=== PATIENT | female | born 1935 | race Caucasian/White ===

== ENCOUNTER → 2016-10-29 | Outpatient (CLI) | payer MEDICARE, MEDICAID | LOC: YCHH 12:45 | PROVIDERS: ATTEND Family Medicine | DX: D64.9 Anemia, unspecified (principal); I10 Essential (primary) hypertension; E05.90 Thyrotoxicosis, unspecified without thyrotoxic crisis or storm; E78.5 Hyperlipidemia, unspecified ==

== ENCOUNTER → 2016-11-04 | Outpatient (CLI) | payer MEDICARE, MEDICAID | LOC: GMAM 14:45 | PROVIDERS: ATTEND Family Medicine | DX: E53.8 Deficiency of other specified B group vitamins (principal) ==

== ENCOUNTER → 2016-11-10 | Outpatient (CLI) | payer MEDICARE, MEDICAID ==
--- NOTE | 2016-11-10 17:35 | US ---
EXAM DESCRIPTION: Venous,Upper Extremity RT CLINICAL HISTORY: SWELLING OF ARM COMPARISON: None Available TECHNIQUE: Duplex images of the jugular, subclavian, axillary, brachial, cephalic, basilic, radial and ulnar veins of the right upper extremity were submitted. FINDINGS: All of the above-mentioned venous structures demonstrate normal flow without thrombus. IMPRESSION: No sonographic evidence of acute DVT within the right upper extremity. Electronically signed by: Joey Mendieta MD 11/10/2016 3:34 PM PST
== END ==
LOC: GMA 16:00
PROVIDERS: ATTEND Nurse Practitioner Family
DX: R22.31 Localized swelling, mass and lump, right upper limb (principal)

== ENCOUNTER → 2016-11-17 | Outpatient (CLI) | payer MEDICARE, MEDICAID | LOC: GMAM 17:57 | PROVIDERS: ATTEND Family Medicine | DX: Z77.21 Contact with and (suspected) exposure to potentially hazardous body fluids (principal) ==

== ENCOUNTER → 2017-01-01 | Outpatient (CLI) | payer MEDICARE, MEDICAID | END | disposition home or self-care (01) | LOC: YCHH 13:13 | PROVIDERS: ATTEND Family Medicine | DX: E53.8 Deficiency of other specified B group vitamins (principal) ==

== ENCOUNTER 2017-01-19 09:39 | Emergency (ER) | payer MEDICARE, MEDICAID ==
[2017-01-19 09:59] VITALS: TEMP 97.7
--- NOTE | 2017-01-19 10:01 | ED.PDOC ---
History of Present Illness - General Chief Complaint: Trauma Stated Complaint: fall Time Seen by Provider: 01/19/17 09:52 Source: patient Exam Limitations: no limitations - History of Present Illness Initial Comments: PT FELL 2 DAYS AGO. COMES FOR EVALUATION. C/O PAIN NECK, R LEG, R KNEE. NO LOC Severity: mild Improving Factors: nothing Worsening Factors: other - TAKES COUMADIN Allergies/Adverse Reactions: Allergies Ranolazine [From Ranexa] Allergy (Verified 01/19/17 09:57) Unknown Yellow Dye [From Ranexa] Allergy (Verified 01/19/17 09:57) Unknown Cilostazol Adverse Reaction (Verified 01/19/17 09:57) Other Makes her feel dizzy Home Medications: Ambulatory Orders Aspirin [Aspirin 81] 81 mg PO DAILY 10/08/13 Ferrous Sulfate [Iron] 65 mg PO DAILY 10/08/13 Lisinopril 20 mg PO DAILY 10/08/13 Nitroglycerin 0.4 mg Tab [Nitrostat] 1 ea SL .Q5M PRN 10/08/13 Simvastatin 80 mg PO BEDTIME 10/08/13 Albuterol Sulfate Nebs [Proventil Nebs] 2.5 mg INH RTTID 10/31/15 Levothyroxine Sodium [Synthroid] 100 mcg PO DAILY 10/31/15 Warfarin Sodium 4 mg PO BEDTIME 10/31/15 Ipratropium/Albuterol [Duoneb] 3 ml NEB TID 03/12/16 B-Complex Vitamins [Vitamin B Complex] 1 tab PO DAILY 01/19/17 Sennosides [Senna-Lax] 8.6 mg PO DAILY 01/19/17 Review of Systems - Review of Systems Constitutional: Denies: chills, fever, weakness EENTM: Denies: ear pain, throat pain Respiratory: Denies: cough, short of breath, wheezing Cardiology: Denies: chest pain, edema, palpitations Gastrointestinal/Abdominal: Denies: nausea, vomiting Genitourinary: Denies: dysuria, hematuria Musculoskeletal: States: back pain, neck pain Skin: States: other - BRUISING Neurological: Denies: numbness, paresthesia, weakness Endocrine: States: no symptoms reported Hematologic/Lymphatic: States: no symptoms reported Past Medical History (General) - Patient Medical History Hx Seizures: No Hx Stroke: No Hx Asthma: No Hx of COPD: Yes Hx Cardiac Disorders: Yes Hx Congestive Heart Failure: No Hx Pacemaker: No Hx Hypertension: Yes Hx Thyroid Disease: Yes Hx Diabetes: No Hx MRSA: No Hx Other - free text: PVD - Vaccination History Hx Tetanus, Diphtheria Vaccination: Yes Hx Influenza Vaccination: No Hx Pneumococcal Vaccination: No - Social History Hx Tobacco Use: Yes Hx Alcohol Use: No Hx Substance Use: No Hx Physical Abuse: No Hx Emotional Abuse: No - Female History Patient : No Family Medical History - Family History Mother Family History: Unknown Living Status: Hx Family Hypertension: Yes Hx Family Diabetes: Yes Physical Exam - Physical Exam General Appearance: Alert, Comfortable, No apparent distress Eye Exam: bilateral normal Ears, Nose, Throat: hearing grossly normal, normal ENT inspection Neck: full range of motion, supple, other - TENDER R PARACERVICAL REGION, NO MIDLINE TTP, NO DEFORMITY Respiratory: lungs clear, normal breath sounds, no respiratory distress, other - SMALL BRUISE TO R POST THORAX, TTP, NO CREPITUS, NO SUBQ EMPH. Cardiovascular/Chest: regular rate, rhythm, no murmur Gastrointestinal/Abdominal: non tender, soft, no organomegaly Back Exam: other - NO T/L SPINE TTP Extremity: normal range of motion, other - TTP RUL, NO BRUISING, NO DEFORMITY, NVI Neurologic: no motor/sensory deficits, alert, normal mood/affect Skin Exam: normal color, warm/dry, other - SMALL NON SUTURABLE LACERATION THENAR EMENINCE R HAND, MILD BRUISING BIRD AND LOWER ARM Lymphatic: no adenopathy Progress - Progress Progress: 01/19/17 11:28 HAVE REVIEWED ALL IMAGES AND AGREE WITH RADIOLOGY INTERP. PT FEELING WELL, DOES NOT NEED ANY MEDICATIONS AT HOME. Departure - Departure Clinical Impression: Cervical strain, acute Qualifiers: Encounter type: initial encounter Qualifier Code: (S16.1XXA) Strain of muscle, fascia and tendon at neck level, initial encounter Contusion of thoracic wall Qualifiers: Encounter type: initial encounter Contusion of thoracic wall detail: back wall of thorax Laterality: right Qualifier Code: (S20.221A) Contusion of right back wall of thorax, initial encounter Contusion of leg, right Qualifiers: Encounter type: initial encounter Qualifier Code: (S80.11XA) Contusion of right lower leg, initial encounter Condition: Good Departure Forms: ED Discharge - Pt. Copy, Patient Portal Self Enrollment Instructions: DI for Musculoskeletal Pain Home Medications: Ambulatory Orders Aspirin [Aspirin 81] 81 mg PO DAILY 10/08/13 Ferrous Sulfate [Iron] 65 mg PO DAILY 10/08/13 Lisinopril 20 mg PO DAILY 10/08/13 Nitroglycerin 0.4 mg Tab [Nitrostat] 1 ea SL .Q5M PRN 10/08/13 Simvastatin 80 mg PO BEDTIME 10/08/13 Albuterol Sulfate Nebs [Proventil Nebs] 2.5 mg INH RTTID 10/31/15 Levothyroxine Sodium [Synthroid] 100 mcg PO DAILY 10/31/15 Warfarin Sodium 4 mg PO BEDTIME 10/31/15 Ipratropium/Albuterol [Duoneb] 3 ml NEB TID 03/12/16 B-Complex Vitamins [Vitamin B Complex] 1 tab PO DAILY 01/19/17 Sennosides [Senna-Lax] 8.6 mg PO DAILY 01/19/17
--- NOTE | 2017-01-19 10:53 | RAD ---
Study: Single Frontal View of the Chest. Indication:FALL WITH PAIN Comparison: March 12, 2016. Impression: Median sternotomy wires. Cardiomegaly. Elevation right hemidiaphragm. Emphysema with scattered areas of scarring suspected. No new consolidation, pleural effusion, or pneumothorax. Osteopenia. If this is a new finding, DEXA scan recommended as well as evaluation for possible osteoporosis treatment. Electronically signed by: López Nichole MD 01/19/2017 10:52 AM CDT
--- NOTE | 2017-01-19 11:03 | RAD ---
EXAM DESCRIPTION: Femur,Right CLINICAL HISTORY: FALL WITH PAIN COMPARISON: None. IMPRESSION: 2 views of the right femur shows no convincing evidence of acute fracture, focal bone destruction, or joint dislocation. There is moderate narrowing of the medial tibiofemoral compartment and joint line osteophytes consistent with moderate to severe osteoarthritic-type changes. There is increased density in the suprapatellar bursa region suggesting joint effusion. If the patient has more localized pain in the distal femur or knee region, further evaluation with dedicated x-rays of the knee may be useful. Severe vascular calcifications are seen. Soft tissue surgical clips throughout the soft tissues are seen possibly related to previous vascular surgery. Mild osteoarthritic changes of the right hip are seen. Electronically signed by: Alejandro Poon MD 01/19/2017 11:02 AM CDT
--- NOTE | 2017-01-19 11:22 | CT ---
Study: CT cervical spine. Indication: FALL WITH PAIN Technique: Axial CT images were acquired through the cervical spine without intravenous contrast. Coronal and sagittal reformats performed. Comparison: None. Findings: Vertebral body height maintained. Straightening cervical spine. No acute fracture identified. Pronounced cervical disc disease noted with moderate severe disc space height loss at the C3-C4 through C6-C7 disc space levels. Changes are most pronounced at the C6-C7 disc space level where a disc osteophyte complex produces at least moderate spinal canal narrowing. Varying degrees of bilateral neural foraminal narrowing at each of these levels as well. Atherosclerosis great vessels. Impression: No CT evidence of acute cervical fracture. Cervical disc disease. MRI could better evaluate as clinically indicated. Atherosclerosis. Electronically signed by: López Nichole MD 01/19/2017 11:21 AM CDT
[2017-01-19 11:47] VITALS: BP 186/68; O2SAT 90
== END 2017-01-19 11:47 | disposition home or self-care (01) ==
LOC: ER 09:39
DX: S16.1XXA Strain of muscle, fascia and tendon at neck level, initial encounter (principal); S20.221A Contusion of right back wall of thorax, initial encounter; S80.11XA Contusion of right lower leg, initial encounter; J44.9 Chronic obstructive pulmonary disease, unspecified; I10 Essential (primary) hypertension; E07.9 Disorder of thyroid, unspecified; Z79.82 Long term (current) use of aspirin; Z79.01 Long term (current) use of anticoagulants; Z79.899 Other long term (current) drug therapy; Z88.8 Allergy status to other drugs, medicaments and biological substances; Z87.891 Personal history of nicotine dependence; W19.XXXA Unspecified fall, initial encounter; Y92.9 Unspecified place or not applicable

== ENCOUNTER → 2017-01-28 | Outpatient (CLI) | payer MEDICARE, MEDICAID | LOC: YCHH 10:36 | PROVIDERS: ATTEND Family Medicine | DX: D64.9 Anemia, unspecified (principal); E53.8 Deficiency of other specified B group vitamins; N18.9 Chronic kidney disease, unspecified; E78.5 Hyperlipidemia, unspecified; E03.9 Hypothyroidism, unspecified ==

== ENCOUNTER → 2017-04-22 | Outpatient (CLI) | payer MEDICARE, MEDICAID | END | disposition home or self-care (01) | LOC: YCHH 09:29 | PROVIDERS: ATTEND Family Medicine | DX: D64.9 Anemia, unspecified (principal); E53.8 Deficiency of other specified B group vitamins; I10 Essential (primary) hypertension; E78.5 Hyperlipidemia, unspecified; E03.9 Hypothyroidism, unspecified ==

== ENCOUNTER → 2017-08-03 | Outpatient (CLI) | payer MEDICARE, MEDICAID | END | disposition home or self-care (01) | LOC: YCHH 10:09 | PROVIDERS: ATTEND Family Medicine | DX: I25.119 Atherosclerotic heart disease of native coronary artery with unspecified angina pectoris (principal); D64.9 Anemia, unspecified; J44.9 Chronic obstructive pulmonary disease, unspecified; I70.201 Unspecified atherosclerosis of native arteries of extremities, right leg; I10 Essential (primary) hypertension ==

== ENCOUNTER → 2017-09-24 | Outpatient (CLI) | payer MEDICARE, MEDICAID ==
--- NOTE | 2017-09-25 03:59 | RAD ---
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 There is no acute fracture or dislocation. Surgical clips project over the medial thigh. Electronically signed by: Jonathon Rubio MD 09/25/2017 3:58 AM CEMENTER HELPER
--- NOTE | 2017-09-25 04:00 | RAD ---
Examination: XR PELVIS 1-2 VIEWS dated 09/24/2017 12:00 AM [employer] SAMPLING AND MONITORING History: HIP PAIN Comparison: None Technique: Frontal view of the pelvis FINDINGS AND IMPRESSION: Mild degenerative changes of both hips without acute fracture or dislocation. Vascular calcifications of the right medial thigh. Bilateral surgical clips. Intact pelvic ring. Symmetric SI joints. Electronically signed by: Jonathon Rubio MD 09/25/2017 3:59 AM [employer] SAMPLING AND MONITORING
== END ==
LOC: RAD 08:17
PROVIDERS: ATTEND Orthopaedic Surgery
DX: M25.552 Pain in left hip (principal)

== ENCOUNTER → 2017-10-27 | Outpatient (CLI) | payer MEDICARE, MEDICAID | END | disposition home or self-care (01) | LOC: YCHH 09:48 | PROVIDERS: ATTEND Family Medicine | DX: D64.9 Anemia, unspecified (principal); I25.119 Atherosclerotic heart disease of native coronary artery with unspecified angina pectoris; J44.9 Chronic obstructive pulmonary disease, unspecified; I73.9 Peripheral vascular disease, unspecified; E03.9 Hypothyroidism, unspecified ==

== ENCOUNTER → 2018-01-27 | Outpatient (CLI) | payer MEDICARE, MEDICAID | LOC: YCHH 10:28 | PROVIDERS: ATTEND Family Medicine | DX: E03.9 Hypothyroidism, unspecified (principal); I25.119 Atherosclerotic heart disease of native coronary artery with unspecified angina pectoris; D64.9 Anemia, unspecified; I73.9 Peripheral vascular disease, unspecified ==

== ENCOUNTER → 2018-03-17 | Outpatient (CLI) | payer MEDICARE, MEDICAID | LOC: YCHH 09:37 | PROVIDERS: ATTEND Family Medicine | DX: E03.9 Hypothyroidism, unspecified (principal); N39.0 Urinary tract infection, site not specified ==

== ENCOUNTER → 2018-04-26 | Outpatient (CLI) | payer MEDICARE, MEDICAID | LOC: YCHH 09:21 | PROVIDERS: ATTEND Family Medicine | DX: N18.9 Chronic kidney disease, unspecified (principal); E78.5 Hyperlipidemia, unspecified; D64.9 Anemia, unspecified; E03.9 Hypothyroidism, unspecified ==

== ENCOUNTER → 2018-06-21 | Outpatient (CLI) | payer MEDICARE, MEDICAID | LOC: GMAM 14:28 | PROVIDERS: ATTEND Family Medicine | DX: E53.8 Deficiency of other specified B group vitamins (principal); E03.9 Hypothyroidism, unspecified; E55.9 Vitamin D deficiency, unspecified; M85.89 Other specified disorders of bone density and structure, multiple sites ==

== ENCOUNTER → 2018-06-28 | Outpatient (CLI) | payer MEDICARE, MEDICAID ==
--- NOTE | 2018-06-28 11:42 | MRI ---
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 Large joint effusion with diffuse synovitis. Multifocal chondral fissuring throughout the patellofemoral joint up to grade 4 the medial patellar facet fairly diffuse otherwise grade 2-3 diffusely. Mild lateral patellar tilt with medial tracking. Postsurgical changes along the medial aspect of the knee likely from previous saphenous harvesting correlate with surgical history. Cruciate ligaments are intact. Extensor tendons are intact. Advanced grade 4 chondrosis throughout the medial tibiofemoral compartment with joint space narrowing subchondral edema and partial medial extrusion of the medial meniscus. There is diffuse degenerative change of the medial meniscus with small horizontal tear in the body and moderate volume loss. There is diffuse degenerative fraying of the lateral meniscus with horizontal tear of the anterior horn and body. There is vague chondrosis grade 2-3 in the lateral tibiofemoral compartment multifocal. Mild grade 1 edema along the MCL and LCL. Mild subchondral osteophyte formation lateral femoral condyle sagittal series 5 image 24. 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
== END ==
LOC: MRI 11:00
PROVIDERS: ATTEND Family Medicine
DX: M17.11 Unilateral primary osteoarthritis, right knee (principal); M23.303 Other meniscus derangements, unspecified medial meniscus, right knee; M25.461 Effusion, right knee

== ENCOUNTER 2018-06-30 11:36 | Emergency (ER) | payer MEDICARE, MEDICAID ==
[2018-06-30 11:55] VITALS: TEMP 97.9
--- NOTE | 2018-06-30 12:28 | RAD ---
EXAM DESCRIPTION: Chest,1 View CLINICAL HISTORY: 83 years Female, chest pain, history of PVD, on coumadin COMPARISON: Previous study January 19, 2017 TECHNIQUE: AP portable chest. FINDINGS: Heart size is prominent with prominent central pulmonary vascularity. Right hemidiaphragm is elevated. Minimal discoid atelectasis in the medial right lung base and peripheral left lung base. No consolidating infiltrate. No pulmonary mass or worrisome nodule. No pneumothorax or pleural effusion. Bones are unremarkable. No worrisome change since previous study. IMPRESSION: Elevated right hemidiaphragm. Prominent heart without congestive failure. Discoid atelectasis in the lung bases. Electronically signed by: Torsten Gross MD 06/30/2018 12:27 PM CDT
--- NOTE | 2018-06-30 12:30 | ED.PDOC ---
History of Present Illness - General Chief Complaint: General Stated Complaint: jaw pain,nausea Time Seen by Provider: 06/30/18 12:00 Source: patient Exam Limitations: no limitations - History of Present Illness Initial Comments: Patient presents from clinic after she had an "episode" in the waiting room there. She says that she felt bilateral LE cramping that moved up to her hips, then abdomen, then chest, then left jaw. She got up and walked around and the LE cramping disappeared. She was sent to the E.D. and right now she is not having any symptoms. 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 She is not sure if the stents are arterial, venous, or both. She takes coumadin for the stents. She also reports that she got "light-headed" during the "episode". Denies previous episodes No other complaints. Timing/Duration: 1 hour Severity: moderate Improving Factors: nothing Worsening Factors: nothing Associated Symptoms: denies symptoms Allergies/Adverse Reactions: Allergies Ranolazine [From Ranexa] Allergy (Verified 01/19/17 09:57) Unknown Yellow Dye [From Ranexa] Allergy (Verified 01/19/17 09:57) Unknown Cilostazol Adverse Reaction (Verified 01/19/17 09:57) Other Makes her feel dizzy Home Medications: Ambulatory Orders Aspirin [Aspirin 81] 81 mg PO DAILY 10/08/13 Lisinopril 20 mg PO DAILY 10/08/13 Nitroglycerin 0.4 mg Tab [Nitrostat] 1 ea SL .Q5M PRN 10/08/13 Simvastatin 80 mg PO BEDTIME 10/08/13 Albuterol Sulfate Nebs [Proventil Nebs] 2.5 mg INH BID 10/31/15 Warfarin Sodium 4 mg PO BEDTIME 10/31/15 Ipratropium/Albuterol [Duoneb] 3 ml NEB TID 03/12/16 Sennosides [Senna-Lax] 8.6 mg PO DAILY 01/19/17 Ascorbic Acid [Vitamin C] 500 mg PO DAILY 06/30/18 Calcium Carbonate-Vitamin D W/ [Gnp Calcium 600 +D/[place] 600-800 mg-Unit] 1 tab PO DAILY 06/30/18 Cyanocobalamin [Vitamin B-12] 1,000 mcg PO DAILY 06/30/18 Docusate Sodium [Colace Clear] 1 - 2 mg PO PRN 06/30/18 Ferrous Sulfate 325 mg PO BID 06/30/18 Levothyroxine Sodium 112 mcg PO DAILY 06/30/18 Multiple Vitamins W/ Minerals [Centrum Silver Adult 50+] 1 tab PO DAILY Potassium Chloride [Micro-K] 8 meq PO PRN 06/30/18 Sennosides 8.6MG [Senokot] 2 ea PO BEDTIME 06/30/18 Review of Systems - Review of Systems Constitutional: States: no symptoms reported EENTM: States: no symptoms reported Respiratory: States: no symptoms reported Cardiology: States: see HPI Gastrointestinal/Abdominal: States: no symptoms reported Genitourinary: States: no symptoms reported Musculoskeletal: States: no symptoms reported Skin: States: no symptoms reported Neurological: States: no symptoms reported Endocrine: States: no symptoms reported Hematologic/Lymphatic: States: no symptoms reported Past Medical History (General) - Patient Medical History Hx Seizures: No Hx Stroke: No Hx Asthma: No Hx of COPD: Yes Hx Cardiac Disorders: Yes Hx Congestive Heart Failure: No Hx Pacemaker: No Hx Hypertension: Yes Hx Thyroid Disease: Yes Hx Diabetes: No Hx MRSA: No Surgical History: coronary bypass surgery, Hysterectomy - Vaccination History Hx Tetanus, Diphtheria Vaccination: Yes Hx Influenza Vaccination: No Hx Pneumococcal Vaccination: No - Social History Hx Tobacco Use: Yes Hx Alcohol Use: No Hx Substance Use: No Hx Physical Abuse: No Hx Emotional Abuse: No - Female History Patient : No Family Medical History - Family History Mother Family History: Unknown Living Status: Hx Family Hypertension: Yes Hx Family Diabetes: Yes Physical Exam - Physical Exam General Appearance: Alert Eye Exam: bilateral normal Ears, Nose, Throat: hearing grossly normal, normal ENT inspection Neck: non-tender, full range of motion, supple Respiratory: lungs clear, normal breath sounds, no respiratory distress Cardiovascular/Chest: normal peripheral pulses, regular rate, rhythm, no edema Gastrointestinal/Abdominal: normal bowel sounds, non tender, soft Back Exam: normal inspection, no CVA tenderness, no vertebral tenderness Extremity: normal range of motion, non-tender, normal inspection Neurologic: customer success advocate II-XII nml as tested, no motor/sensory deficits, alert, normal mood/affect, oriented x 3 Skin Exam: normal color Lymphatic: no adenopathy Progress - Progress Progress: 06/30/18 15:41 Patient was symptomatic in the E.D. EKG read by me showed NSR with no ST changes nor T wave inversions. No LBBB. Laboratory Tests 06/30/18 06/30/18 06/30/18 12:27 12:27 12:27 WBC 4.6 L RBC 3.31 L Hgb 10.6 L Hct 32.3 L MCV 97.6 MCH 32.0 H MCHC 32.8 L RDW 14.9 H Plt Count 213 MPV 9.2 Absolute Neuts (auto) 2.70 Absolute Lymphs (auto) 1.20 Absolute Monos (auto) 0.50 Absolute Eos (auto) 0.10 Absolute Basos (auto) 0.10 Neutrophils % 59.5 Lymphocytes % 26.2 Monocytes % 11.3 H Eosinophils % 1.7 Basophils % 1.3 PT INR PTT (SP) D-Dimer, Quantitative Sodium 144 Potassium 4.2 Chloride 107 Carbon Dioxide 30 Anion Gap 11.2 L BUN 17 Creatinine 0.67 BUN/Creatinine Ratio 25.4 H Random Glucose 75 Serum Osmolality 287.1 Calcium 9.1 Total Bilirubin 0.2 AST 20 ALT 15 Alkaline Phosphatase 54 Creatine Kinase 76 CK-MB (CK-2) 1.6 CK-MB (CK-2) % Not Reportable Troponin I < 0.02 B-Natriuretic Peptide 121.0 H Serum Total Protein 6.5 Albumin 3.8 Globulin 2.7 Albumin/Globulin Ratio 1.4 TSH 1.17 Thyroxine (T4) Urine Color Urine Appearance Urine pH Ur Specific [place] Urine Protein Urine Glucose (UA) Urine Ketones Urine Blood Urine Nitrite Urine Bilirubin Urine Urobilinogen Ur Leukocyte Esterase Urine RBC Urine WBC Ur Epithelial Cells Urine Bacteria 06/30/18 06/30/18 06/30/18 12:27 12:27 12:27 WBC RBC Hgb Hct MCV MCH MCHC RDW Plt Count MPV Absolute Neuts (auto) Absolute Lymphs (auto) Absolute Monos (auto) Absolute Eos (auto) Absolute Basos (auto) Neutrophils % Lymphocytes % Monocytes % Eosinophils % Basophils % PT 23.0 H INR 2.32 H PTT (SP) 33.0 H D-Dimer, Quantitative 0.65 H* Sodium Potassium Chloride Carbon Dioxide Anion Gap BUN Creatinine BUN/Creatinine Ratio Random Glucose Serum Osmolality Calcium Total Bilirubin AST ALT Alkaline Phosphatase Creatine Kinase CK-MB (CK-2) CK-MB (CK-2) % Troponin I B-Natriuretic Peptide Serum Total Protein Albumin Globulin Albumin/Globulin Ratio TSH Thyroxine (T4) 11.41 Urine Color Urine Appearance Urine pH Ur Specific [place] Urine Protein Urine Glucose (UA) Urine Ketones Urine Blood Urine Nitrite Urine Bilirubin Urine Urobilinogen Ur Leukocyte Esterase Urine RBC Urine WBC Ur Epithelial Cells Urine Bacteria 06/30/18 06/30/18 14:15 15:01 WBC RBC Hgb Hct MCV MCH MCHC RDW Plt Count MPV Absolute Neuts (auto) Absolute Lymphs (auto) Absolute Monos (auto) Absolute Eos (auto) Absolute Basos (auto) Neutrophils % Lymphocytes % Monocytes % Eosinophils % Basophils % PT INR PTT (SP) D-Dimer, Quantitative Sodium Potassium Chloride Carbon Dioxide Anion Gap BUN Creatinine BUN/Creatinine Ratio Random Glucose Serum Osmolality Calcium Total Bilirubin AST ALT Alkaline Phosphatase Creatine Kinase CK-MB (CK-2) CK-MB (CK-2) % Troponin I < 0.02 B-Natriuretic Peptide Serum Total Protein Albumin Globulin Albumin/Globulin Ratio TSH Thyroxine (T4) Urine Color Yellow Urine Appearance Clear Urine pH 5.5 Ur Specific [place] 1.025 Urine Protein Negative Urine Glucose (UA) Negative Urine Ketones Negative Urine Blood Negative Urine Nitrite Negative Urine Bilirubin Negative Urine Urobilinogen 0.2 Ur Leukocyte Esterase Negative Urine RBC 0 Urine WBC 0 Ur Epithelial Cells 0 Urine Bacteria 0 Possible vasovagal given the patient's symptoms and rapid resolution. Care instructions given. E.R. warnings given. Questions were elicited and answered. The patient voiced understanding and agreement with the plan. Departure - Departure Clinical Impression: Light-headed feeling Disposition: Discharge to Home or Self Care Condition: Good Departure Forms: ED Discharge - Pt. Copy, Patient Portal Self Enrollment Diet: resume usual diet Activity: increase activity as tolerated Referrals: Sal Be MD [Primary Care Provider] - 1-2 Weeks Home Medications: Ambulatory Orders Aspirin [Aspirin 81] 81 mg PO DAILY 10/08/13 Lisinopril 20 mg PO DAILY 10/08/13 Nitroglycerin 0.4 mg Tab [Nitrostat] 1 ea SL .Q5M PRN 10/08/13 Simvastatin 80 mg PO BEDTIME 10/08/13 Albuterol Sulfate Nebs [Proventil Nebs] 2.5 mg INH BID 10/31/15 Warfarin Sodium 4 mg PO BEDTIME 10/31/15 Ipratropium/Albuterol [Duoneb] 3 ml NEB TID 03/12/16 Sennosides [Senna-Lax] 8.6 mg PO DAILY 01/19/17 Ascorbic Acid [Vitamin C] 500 mg PO DAILY 06/30/18 Calcium Carbonate-Vitamin D W/ [Gnp Calcium 600 +D/[place] 600-800 mg-Unit] 1 tab PO DAILY 06/30/18 Cyanocobalamin [Vitamin B-12] 1,000 mcg PO DAILY 06/30/18 Docusate Sodium [Colace Clear] 1 - 2 mg PO PRN 06/30/18 Ferrous Sulfate 325 mg PO BID 06/30/18 Levothyroxine Sodium 112 mcg PO DAILY 06/30/18 Multiple Vitamins W/ Minerals [Centrum Silver Adult 50+] 1 tab PO DAILY Potassium Chloride [Micro-K] 8 meq PO PRN 06/30/18 Sennosides 8.6MG [Senokot] 2 ea PO BEDTIME 06/30/18 Additional Instructions: See your regular doctor tomorrow to follow up with symptoms. Return to the E.R. immediately if you symptoms happen again.
[2018-06-30 16:11] VITALS: BP 171/66; O2SAT 93
== END 2018-06-30 16:10 | disposition home or self-care (01) ==
LOC: ER 11:36
DX: R42 Dizziness and giddiness (principal); I10 Essential (primary) hypertension; E07.9 Disorder of thyroid, unspecified; I73.9 Peripheral vascular disease, unspecified; J44.9 Chronic obstructive pulmonary disease, unspecified; Z95.1 Presence of aortocoronary bypass graft; Z79.899 Other long term (current) drug therapy; Z79.01 Long term (current) use of anticoagulants; Z79.82 Long term (current) use of aspirin; Z88.8 Allergy status to other drugs, medicaments and biological substances; Z87.891 Personal history of nicotine dependence

== ENCOUNTER → 2018-07-29 | Outpatient (CLI) | payer MEDICARE, MEDICAID | LOC: YCHH 09:47 | PROVIDERS: ATTEND Family Medicine | DX: D64.9 Anemia, unspecified (principal); I25.119 Atherosclerotic heart disease of native coronary artery with unspecified angina pectoris; E03.9 Hypothyroidism, unspecified; R79.89 Other specified abnormal findings of blood chemistry; Z79.01 Long term (current) use of anticoagulants ==

== ENCOUNTER → 2018-10-06 | Outpatient (CLI) | payer MEDICARE, MEDICAID | LOC: YCHH 10:14 | PROVIDERS: ATTEND Family Medicine | DX: N39.0 Urinary tract infection, site not specified (principal) ==

== ENCOUNTER → 2018-10-28 | Outpatient (CLI) | payer MEDICARE, MEDICAID | LOC: YCHH 10:16 | PROVIDERS: ATTEND Family Medicine | DX: I25.119 Atherosclerotic heart disease of native coronary artery with unspecified angina pectoris (principal); E03.9 Hypothyroidism, unspecified; D64.9 Anemia, unspecified; Z79.01 Long term (current) use of anticoagulants ==

== ENCOUNTER → 2018-11-10 | Outpatient (CLI) | payer MEDICARE, MEDICAID | LOC: YCHH 10:14 | PROVIDERS: ATTEND Family Medicine | DX: Z79.01 Long term (current) use of anticoagulants (principal) ==

== ENCOUNTER → 2018-11-24 | Outpatient (CLI) | payer MEDICARE, MEDICAID | LOC: YCHH 11:30 | PROVIDERS: ATTEND Family Medicine | DX: E03.9 Hypothyroidism, unspecified (principal); D64.9 Anemia, unspecified; I25.119 Atherosclerotic heart disease of native coronary artery with unspecified angina pectoris ==

== ENCOUNTER → 2019-01-11 | Outpatient (CLI) | payer MEDICARE, MEDICAID ==
--- NOTE | 2019-01-11 18:37 | MRI ---
MRI left wrist without contrast INDICATION: Wrist pain status post fall 3 weeks ago TECHNIQUE: Noncontrast MR imaging left wrist FINDINGS: No fracture or dislocation. Cystic or chondroid lesion in the mid to proximal scaphoid nonaggressive in appearance. Additional small cyst distal pole. Moderate osteoarthrosis basal joint of thumb. Mild osteoarthrosis STT compartment. There is edema throughout the thoracic of the hamate extending slightly into the body of the hamate indicating fracture. No gross displacement but CT may be considered. Intrasubstance degenerative change trying or fibrocartilage. Prominent fluid distal radioulnar joint. No evidence of carpal instability. 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
== END ==
LOC: MRI 10:00
PROVIDERS: ATTEND Family Medicine
DX: M71.332 Other bursal cyst, left wrist (principal); M19.042 Primary osteoarthritis, left hand; M89.9 Disorder of bone, unspecified; M25.432 Effusion, left wrist

== ENCOUNTER 2019-01-25 15:21 | Emergency (ER) | payer MEDICARE, MEDICAID ==
--- NOTE | 2019-01-25 16:03 | ED.PDOC ---
History of Present Illness - General Chief Complaint: Blood Pressure Problem Stated Complaint: dizzy, low BP Time Seen by Provider: 01/25/19 15:22 Source: patient Exam Limitations: no limitations - History of Present Illness Initial Comments: SHE WAS FEELING WEAK AND DIZZY. CALLED HOME HEALTH NURSE AND SHE NOTED THAT SHE HAD A BP OF 90 SYSTOLIC. THE PATIENT WAS SENT HERE FOR EVALUATION. Timing/Duration: 1 hour Improving Factors: nothing Worsening Factors: nothing Associated Symptoms: denies symptoms Allergies/Adverse Reactions: Allergies Ranolazine [From Ranexa] Allergy (Verified 01/25/19 16:18) Unknown Yellow Dye [From Ranexa] Allergy (Verified 01/25/19 16:18) Unknown Cilostazol Adverse Reaction (Verified 01/25/19 16:18) Other Makes her feel dizzy Home Medications: Ambulatory Orders Aspirin [Aspirin 81] 81 mg PO DAILY 10/08/13 Lisinopril 20 mg PO DAILY 10/08/13 Nitroglycerin 0.4 mg Tab [Nitrostat] 1 ea SL .Q5M PRN 10/08/13 Simvastatin 80 mg PO BEDTIME 10/08/13 Warfarin Sodium 4 mg PO BEDTIME 10/31/15 Ipratropium/Albuterol [Duoneb] 3 ml NEB TID 03/12/16 Levothyroxine Sodium 112 mcg PO DAILY 06/30/18 Potassium Chloride [Micro-K] 8 meq PO PRN 06/30/18 Sennosides 8.6MG [Senokot] 2 ea PO BEDTIME 06/30/18 Acetaminophen [Tylenol] 500 mg PO Q6H PRN 01/25/19 Furosemide [Lasix] 20 mg PO DAILY PRN 01/25/19 Iron W/ Vitamins [Geritol Complete] 1 tab PO DAILY 01/25/19 Review of Systems - Review of Systems Constitutional: States: malaise, weakness EENTM: States: no symptoms reported Respiratory: States: no symptoms reported Cardiology: States: no symptoms reported Gastrointestinal/Abdominal: States: no symptoms reported Genitourinary: States: no symptoms reported Musculoskeletal: States: no symptoms reported Skin: States: no symptoms reported Neurological: States: no symptoms reported Endocrine: States: no symptoms reported Hematologic/Lymphatic: States: no symptoms reported Past Medical History (General) - Patient Medical History Hx Seizures: No Hx Stroke: Yes Hx Asthma: No Hx of COPD: Yes Hx Cardiac Disorders: Yes Hx Congestive Heart Failure: Yes Hx Pacemaker: No Hx Hypertension: Yes Hx Thyroid Disease: Yes Hx Diabetes: No Hx MRSA: No Surgical History: coronary bypass surgery, Hysterectomy, other - Vaccination History Hx Tetanus, Diphtheria Vaccination: No Hx Influenza Vaccination: No Hx Pneumococcal Vaccination: No - Social History Hx Tobacco Use: Yes Hx Alcohol Use: No Hx Substance Use: No Hx Physical Abuse: No Hx Emotional Abuse: No - Female History Patient : No Family Medical History - Family History Mother Family History: Unknown Living Status: Hx Family Hypertension: Yes Hx Family Diabetes: Yes Father Hx Family Cancer: Yes - colon Physical Exam - Physical Exam General Appearance: Alert, No apparent distress, Well Developed, Well Hydrated Eye Exam: bilateral normal Ears, Nose, Throat: hearing grossly normal, normal ENT inspection, normal pharynx Neck: non-tender, full range of motion, supple Respiratory: chest non-tender, lungs clear, normal breath sounds, no respiratory distress Cardiovascular/Chest: normal peripheral pulses, regular rate, rhythm, no edema, no gallop, no murmur Peripheral Pulses: radial,right: 2+, radial,left: 2+ Gastrointestinal/Abdominal: normal bowel sounds, non tender, soft, no orga nomegaly Back Exam: normal inspection, no CVA tenderness, no vertebral tenderness Extremity: normal range of motion, non-tender, normal inspection Neurologic: normal mood/affect, oriented x 3 Skin Exam: normal color, warm/dry Lymphatic: no adenopathy Progress - Progress Progress: 01/25/19 17:36 01/25/19 15:45 EKG STAT 01/25/19 16:08 Vital Signs-Tilt PRN Laboratory Results WBC 7.6 K/mm3 (4.8-10.8) 01/25/19 15:58 RBC 3.78 M/mm3 (4.20-5.40) L 01/25/19 15:58 Hgb 11.5 gm/dL (12.0-16.0) L 01/25/19 15:58 Hct 35.1 % (36.0-47.0) L 01/25/19 15:58 MCV 92.8 fl (81.0-99.0) 01/25/19 15:58 MCH 30.3 pg (27.0-31.0) 01/25/19 15:58 MCHC 32.7 g/dL (33.0-37.0) L 01/25/19 15:58 RDW 12.5 % (11.5-14.5) 01/25/19 15:58 Plt Count 219 K/mm3 (130-400) 01/25/19 15:58 MPV 9.7 fl (7.40-10.4) 01/25/19 15:58 Absolute Neuts (auto) 5.00 K/uL (1.8-6.8) 01/25/19 15:58 Absolute Lymphs (auto) 1.60 K/uL (1.0-3.4) 01/25/19 15:58 Absolute Monos (auto) 0.90 K/uL (0.2-0.8) H 01/25/19 15:58 Absolute Eos (auto) 0.10 K/uL (0.0-0.4) 01/25/19 15:58 Absolute Basos (auto) 0.00 K/uL (0.0-0.1) 01/25/19 15:58 Neutrophils % 65.1 % (42.0-78.0) 01/25/19 15:58 Lymphocytes % 20.9 % (20.0-50.0) 01/25/19 15:58 Monocytes % 11.8 % (2.0-9.0) H 01/25/19 15:58 Eosinophils % 1.7 % (1.0-5.0) 01/25/19 15:58 Basophils % 0.5 % (0.0-2.0) 01/25/19 15:58 Sodium 138 mmol/L (135-145) 01/25/19 15:58 Potassium 4.5 mmol/L (3.6-5.0) 01/25/19 15:58 Chloride 104 mmol/L (101-111) 01/25/19 15:58 Carbon Dioxide 26 mmol/L (21-31) 01/25/19 15:58 Anion Gap 12.5 (12-18) 01/25/19 15:58 BUN 23 mg/dL (7-18) H 01/25/19 15:58 Creatinine 0.94 mg/dL (0.6-1.3) 01/25/19 15:58 BUN/Creatinine Ratio 24.5 (10-20) H 01/25/19 15:58 Random Glucose 65 mg/dL (70-105) L 01/25/19 15:58 Serum Osmolality 277.5 mOsm/L (275-295) 01/25/19 15:58 Calcium 9.2 mg/dL (8.4-10.2) 01/25/19 15:58 Total Bilirubin 0.3 mg/dL (0.2-1.0) 01/25/19 15:58 AST 22 IU/L (10-42) 01/25/19 15:58 ALT 16 IU/L (10-60) 01/25/19 15:58 Alkaline Phosphatase 64 IU/L (42-121) 01/25/19 15:58 Serum Total Protein 6.7 gm/dL (6.4-8.2) 01/25/19 15:58 Albumin 3.7 g/dl (3.2-5.5) 01/25/19 15:58 Globulin 3.0 gm/dL (2.3-3.5) 01/25/19 15:58 Albumin/Globulin Ratio 1.2 (1.1-1.9) 01/25/19 15:58 Urine Color Yellow (Yellow) 01/25/19 16:40 Urine Appearance Clear (Clear) 01/25/19 16:40 Urine pH 6.0 (4.5-7.8) 01/25/19 16:40 Ur Specific Ferguson 1.010 (1.005-1.030) 01/25/19 16:40 Urine Protein 30 mg/dL 01/25/19 16:40 Urine Glucose (UA) Negative mg/dL (Negative) 01/25/19 16:40 Urine Ketones Negative mg/dL (NEGATIVE) 01/25/19 16:40 Urine Blood Negative (Negative) 01/25/19 16:40 Urine Nitrite Negative 01/25/19 16:40 Urine Bilirubin Negative (NEGATIVE) 01/25/19 16:40 Urine Urobilinogen 0.2 mg/dL (0.2-1.0) 01/25/19 16:40 Ur Leukocyte Esterase Trace (Negative) H 01/25/19 16:40 Urine RBC 0-1 /hpf 01/25/19 16:40 Urine WBC 1-3 /hpf 01/25/19 16:40 Ur Epithelial Cells 5-10 /hpf 01/25/19 16:40 Urine Bacteria 1+ 01/25/19 16:40 - Results/Orders Results/Orders: 01/25/19 15:45 EKG STAT 01/25/19 16:08 Vital Signs-Tilt PRN 01/25/19 16:42 URINALYSIS Stat Laboratory Results WBC 7.6 K/mm3 (4.8-10.8) 01/25/19 15:58 RBC 3.78 M/mm3 (4.20-5.40) L 01/25/19 15:58 Hgb 11.5 gm/dL (12.0-16.0) L 01/25/19 15:58 Hct 35.1 % (36.0-47.0) L 01/25/19 15:58 MCV 92.8 fl (81.0-99.0) 01/25/19 15:58 MCH 30.3 pg (27.0-31.0) 01/25/19 15:58 MCHC 32.7 g/dL (33.0-37.0) L 01/25/19 15:58 RDW 12.5 % (11.5-14.5) 01/25/19 15:58 Plt Count 219 K/mm3 (130-400) 01/25/19 15:58 MPV 9.7 fl (7.40-10.4) 01/25/19 15:58 Absolute Neuts (auto) 5.00 K/uL (1.8-6.8) 01/25/19 15:58 Absolute Lymphs (auto) 1.60 K/uL (1.0-3.4) 01/25/19 15:58 Absolute Monos (auto) 0.90 K/uL (0.2-0.8) H 01/25/19 15:58 Absolute Eos (auto) 0.10 K/uL (0.0-0.4) 01/25/19 15:58 Absolute Basos (auto) 0.00 K/uL (0.0-0.1) 01/25/19 15:58 Neutrophils % 65.1 % (42.0-78.0) 01/25/19 15:58 Lymphocytes % 20.9 % (20.0-50.0) 01/25/19 15:58 Monocytes % 11.8 % (2.0-9.0) H 01/25/19 15:58 Eosinophils % 1.7 % (1.0-5.0) 01/25/19 15:58 Basophils % 0.5 % (0.0-2.0) 01/25/19 15:58 Sodium 138 mmol/L (135-145) 01/25/19 15:58 Potassium 4.5 mmol/L (3.6-5.0) 01/25/19 15:58 Chloride 104 mmol/L (101-111) 01/25/19 15:58 Carbon Dioxide 26 mmol/L (21-31) 01/25/19 15:58 Anion Gap 12.5 (12-18) 01/25/19 15:58 BUN 23 mg/dL (7-18) H 01/25/19 15:58 Creatinine 0.94 mg/dL (0.6-1.3) 01/25/19 15:58 BUN/Creatinine Ratio 24.5 (10-20) H 01/25/19 15:58 Random Glucose 65 mg/dL (70-105) L 01/25/19 15:58 Serum Osmolality 277.5 mOsm/L (275-295) 01/25/19 15:58 Calcium 9.2 mg/dL (8.4-10.2) 01/25/19 15:58 Total Bilirubin 0.3 mg/dL (0.2-1.0) 01/25/19 15:58 AST 22 IU/L (10-42) 01/25/19 15:58 ALT 16 IU/L (10-60) 01/25/19 15:58 Alkaline Phosphatase 64 IU/L (42-121) 01/25/19 15:58 Serum Total Protein 6.7 gm/dL (6.4-8.2) 01/25/19 15:58 Albumin 3.7 g/dl (3.2-5.5) 01/25/19 15:58 Globulin 3.0 gm/dL (2.3-3.5) 01/25/19 15:58 Albumin/Globulin Ratio 1.2 (1.1-1.9) 01/25/19 15:58 EKG: HR OF 71, FL INTERVAL OF 178, QRS OF 74, QTC OF 430, AXES OF 42 DEGREES. IMPRESSION: NORMAL SINUS RHYTHM, EVIDENCE OF ANTERIO NE- AGE UNDETERMINED. NO ACUTE INJURY PATTERN. no hypotension was recorder here. THE PATIENT WILL BE DISCHARGED Departure - Departure Clinical Impression: Dizziness Time of Disposition: 17:37 Disposition: Discharge to Home or Self Care Condition: Good Departure Forms: ED Discharge - Pt. Copy, Patient Portal Self Enrollment Instructions: DI for Hypotension Referrals: Sal Be MD [Primary Care Provider] - 1-2 Weeks Home Medications: Ambulatory Orders Aspirin [Aspirin 81] 81 mg PO DAILY 10/08/13 Lisinopril 20 mg PO DAILY 10/08/13 Nitroglycerin 0.4 mg Tab [Nitrostat] 1 ea SL .Q5M PRN 10/08/13 Simvastatin 80 mg PO BEDTIME 10/08/13 Warfarin Sodium 4 mg PO BEDTIME 10/31/15 Ipratropium/Albuterol [Duoneb] 3 ml NEB TID 03/12/16 Levothyroxine Sodium 112 mcg PO DAILY 06/30/18 Potassium Chloride [Micro-K] 8 meq PO PRN 06/30/18 Sennosides 8.6MG [Senokot] 2 ea PO BEDTIME 06/30/18 Acetaminophen [Tylenol] 500 mg PO Q6H PRN 01/25/19 Furosemide [Lasix] 20 mg PO DAILY PRN 01/25/19 Iron W/ Vitamins [Geritol Complete] 1 tab PO DAILY 01/25/19
[2019-01-25 17:55] VITALS: BP 148/67; TEMP 96.2; O2SAT 99
== END 2019-01-25 17:55 | disposition home or self-care (01) ==
LOC: ER 15:21
DX: R42 Dizziness and giddiness (principal); J44.9 Chronic obstructive pulmonary disease, unspecified; I50.9 Heart failure, unspecified; I10 Essential (primary) hypertension; E07.9 Disorder of thyroid, unspecified; Z95.1 Presence of aortocoronary bypass graft; Z86.73 Personal history of transient ischemic attack (TIA), and cerebral infarction without residual deficits; Z87.891 Personal history of nicotine dependence; Z79.899 Other long term (current) drug therapy; Z79.01 Long term (current) use of anticoagulants; Z79.82 Long term (current) use of aspirin; Z88.8 Allergy status to other drugs, medicaments and biological substances

== ENCOUNTER → 2019-02-24 | Outpatient (CLI) | payer MEDICARE, MEDICAID | LOC: YCHH 09:37 | PROVIDERS: ATTEND Family Medicine | DX: D64.9 Anemia, unspecified (principal); N18.9 Chronic kidney disease, unspecified; E78.5 Hyperlipidemia, unspecified; E03.9 Hypothyroidism, unspecified; I48.0 Paroxysmal atrial fibrillation ==

== ENCOUNTER 2019-04-17 16:52 | Emergency (ER) | payer MEDICARE, MEDICAID ==
--- NOTE | 2019-04-17 17:37 | ED.PDOC ---
History of Present Illness - General Chief Complaint: Cardiovascular Problem Stated Complaint: low blood pressure Time Seen by Provider: 04/17/19 17:34 Source: patient Exam Limitations: no limitations Additional Information: 83 YEAR PRESENTS WITH COMPLAINTS OF DIZZINESS WEAKNESS SHE CHECKED HER BP IT WAS RECORDED LOW IN THE 80S SHE IS ON LISINOPRIL 20 MG LASIX 40 MG PRN SHE DENIES NAUSEA VOMITING DIARRHEA HAS BEEN NOTICING BLACK STOOLS LAST ONE WEEK SHE WAS CHANGED TO XARALTO FROM COUMADIN BY HER PHYSICIAN IN [place] SHE HAS NO CHEST PAIN OR DIFFICULTY BREATHING PMH CABAG PAD HYPERTENSION CHF PHYSICAL AWAKE ALERT ORIENTED X 3 LUNGS BREATH SOUNDS NORMAL HEART SOUNDS NORMAL S1 S2 NO MURMUR EKG NSR NORMAL AXIS NON PROGRESSION OF R WAVE IN ANTEROSEPTAL LEADS NO ACUTE ST T CHANGES NOTED ABD SOFT NON TENDER NORMAL BOWEL SOUNDS RECTAL EXAM DARK STOOL NOTED POSITIVE FOR OCCULT BLOOD EXTREMITY MINIMAL EDEMA NOTED FEELS WARM AND NORMAL CAP REFILL COURSE IN ED NO HYPOTENSION NOTED DURING HER STAY TILT WAS NEGATIVE HYPOTENSION AT HOME IS MOST LIKELY COMBINATION OF BLOOD LOSS AND ANTIHYPERTENSIVE MEDICATION NEEDS GI EVALUATION FOR THE GI BLOOD LOSS IN THE SETTING OF ANTICOAGULANT XARALTO - History of Present Illness Timing/Duration: 1-3 hours Severity: mild Worsening Factors: nothing Associated Symptoms: denies symptoms Allergies/Adverse Reactions: Allergies Ranolazine [From Ranexa] Allergy (Verified 01/25/19 16:18) Unknown Yellow Dye [From Ranexa] Allergy (Verified 01/25/19 16:18) Unknown Cilostazol Adverse Reaction (Verified 01/25/19 16:18) Other Makes her feel dizzy Home Medications: Ambulatory Orders Aspirin [Aspirin 81] 81 mg PO DAILY 10/08/13 Lisinopril 10 mg PO DAILY 10/08/13 Nitroglycerin 0.4 mg Tab [Nitrostat] 1 ea SL .Q5M PRN 10/08/13 Simvastatin 80 mg PO BEDTIME 10/08/13 Ipratropium/Albuterol [Duoneb] 3 ml NEB TID 03/12/16 Levothyroxine Sodium 112 mcg PO DAILY 06/30/18 Potassium Chloride [Micro-K] 8 meq PO PRN 06/30/18 Sennosides 8.6MG [Senokot] 2 ea PO BEDTIME 06/30/18 Acetaminophen [Tylenol] 500 mg PO Q6H PRN 01/25/19 Furosemide [Lasix] 20 mg PO DAILY PRN 01/25/19 Iron W/ Vitamins [Geritol Complete] 1 tab PO DAILY 01/25/19 Methocarbamol 500 mg PO Q6HR PRN 04/17/19 Rivaroxaban [Xarelto] 2.5 mg PO BID 04/17/19 Review of Systems - Review of Systems Constitutional: States: no symptoms reported EENTM: States: no symptoms reported Respiratory: States: no symptoms reported Cardiology: States: no symptoms reported Gastrointestinal/Abdominal: States: no symptoms reported Genitourinary: States: no symptoms reported Musculoskeletal: States: no symptoms reported Skin: States: no symptoms reported Neurological: States: no symptoms reported Endocrine: States: no symptoms reported Hematologic/Lymphatic: States: no symptoms reported Past Medical History (General) - Patient Medical History Hx Seizures: No Hx Stroke: Yes Hx Asthma: No Hx of COPD: Yes Hx Cardiac Disorders: Yes Hx Congestive Heart Failure: Yes Hx Pacemaker: No Hx Hypertension: Yes Hx Thyroid Disease: Yes Hx Diabetes: No Hx MRSA: No - Vaccination History Hx Tetanus, Diphtheria Vaccination: No Hx Influenza Vaccination: No Hx Pneumococcal Vaccination: No - Social History Hx Tobacco Use: Yes Hx Alcohol Use: No Hx Substance Use: No Hx Physical Abuse: No Hx Emotional Abuse: No - Female History Patient : No Family Medical History - Family History Mother Family History: Unknown Living Status: Hx Family Hypertension: Yes Hx Family Diabetes: Yes Father Hx Family Cancer: Yes - colon Physical Exam - Physical Exam General Appearance: Alert, Comfortable Eye Exam: bilateral normal Ears, Nose, Throat: hearing grossly normal, normal ENT inspection, normal pharynx Neck: non-tender, full range of motion, supple Respiratory: chest non-tender, lungs clear, normal breath sounds, no respiratory distress, no accessory muscle use Cardiovascular/Chest: normal peripheral pulses, regular rate, rhythm, no edema, no gallop, no JVD, no murmur Gastrointestinal/Abdominal: normal bowel sounds, non tender, soft, no organomegaly Back Exam: normal inspection, no CVA tenderness, no vertebral tenderness Extremity: normal range of motion, non-tender, normal inspection Neurologic: customer response representative II-XII nml as tested, no motor/sensory deficits, alert, normal mood/affect, oriented x 3 Skin Exam: warm/dry Lymphatic: no adenopathy Progress - Results/Orders Results/Orders: Laboratory Tests 04/17/19 04/17/19 04/17/19 17:30 17:30 17:30 WBC 6.5 RBC 2.79 L Hgb 7.3 L* Hct 23.0 L MCV 82.3 MCH 26.1 L MCHC 31.7 L RDW 16.1 H Plt Count 240 MPV 9.0 Absolute Neuts (auto) 4.10 Absolute Lymphs (auto) 1.70 Absolute Monos (auto) 0.50 Absolute Eos (auto) 0.10 Absolute Basos (auto) 0.10 Neutrophils % 62.9 Lymphocytes % 27.0 Monocytes % 8.0 Eosinophils % 1.3 Basophils % 0.8 Sodium 136 Potassium 4.2 Chloride 104 Carbon Dioxide 25 Anion Gap 11.2 L BUN 24 H Creatinine 1.03 BUN/Creatinine Ratio 23.3 H Random Glucose 94 Serum Osmolality 275.8 Calcium 8.8 Total Bilirubin 0.5 AST 21 ALT 15 Alkaline Phosphatase 49 Troponin I < 0.02 Serum Total Protein 6.3 L Albumin 3.6 Globulin 2.7 Albumin/Globulin Ratio 1.3 Stool Occult Blood 04/17/19 19:30 WBC RBC Hgb Hct MCV MCH MCHC RDW Plt Count MPV Absolute Neuts (auto) Absolute Lymphs (auto) Absolute Monos (auto) Absolute Eos (auto) Absolute Basos (auto) Neutrophils % Lymphocytes % Monocytes % Eosinophils % Basophils % Sodium Potassium Chloride Carbon Dioxide Anion Gap BUN Creatinine BUN/Creatinine Ratio Random Glucose Serum Osmolality Calcium Total Bilirubin AST ALT Alkaline Phosphatase Troponin I Serum Total Protein Albumin Globulin Albumin/Globulin Ratio Stool Occult Blood Positive Departure - Departure Clinical Impression: GI bleeding, Anemia, Hx of CABG Time of Disposition: 20:27 Disposition: Transfer to Hospital Condition: Fair Departure Forms: ED Discharge - Pt. Copy, Patient Portal Self Enrollment Instructions: DI for Chest Pain Diet: full liquid diet Referrals: Sal Be MD [Primary Care Provider] - 1-2 Weeks Home Medications: Ambulatory Orders Aspirin [Aspirin 81] 81 mg PO DAILY 10/08/13 Lisinopril 10 mg PO DAILY 10/08/13 Nitroglycerin 0.4 mg Tab [Nitrostat] 1 ea SL .Q5M PRN 10/08/13 Simvastatin 80 mg PO BEDTIME 10/08/13 Ipratropium/Albuterol [Duoneb] 3 ml NEB TID 03/12/16 Levothyroxine Sodium 112 mcg PO DAILY 06/30/18 Potassium Chloride [Micro-K] 8 meq PO PRN 06/30/18 Sennosides 8.6MG [Senokot] 2 ea PO BEDTIME 06/30/18 Acetaminophen [Tylenol] 500 mg PO Q6H PRN 01/25/19 Furosemide [Lasix] 20 mg PO DAILY PRN 01/25/19 Iron W/ Vitamins [Geritol Complete] 1 tab PO DAILY 01/25/19 Methocarbamol 500 mg PO Q6HR PRN 04/17/19 Rivaroxaban [Xarelto] 2.5 mg PO BID 04/17/19
[2019-04-17 20:16] VITALS: TEMP 98
[2019-04-17 21:25] VITALS: O2SAT 98
[2019-04-17 21:53] VITALS: BP 151/54
== END 2019-04-17 21:43 | disposition short-term general hospital (02) ==
LOC: ER 16:52
DX: D64.9 Anemia, unspecified (principal); K92.1 Melena; J44.9 Chronic obstructive pulmonary disease, unspecified; I51.9 Heart disease, unspecified; I50.9 Heart failure, unspecified; I11.0 Hypertensive heart disease with heart failure; E07.9 Disorder of thyroid, unspecified; Z79.01 Long term (current) use of anticoagulants; Z95.1 Presence of aortocoronary bypass graft; Z79.82 Long term (current) use of aspirin; Z79.899 Other long term (current) drug therapy; Z88.8 Allergy status to other drugs, medicaments and biological substances; Z87.891 Personal history of nicotine dependence

== ENCOUNTER 2019-05-11 00:57 | Emergency (ER) | payer MEDICARE, MEDICAID ==
[2019-05-11 01:10] VITALS: TEMP 97.9
[2019-05-11 03:50] VITALS: BP 148/57; O2SAT 99
== END 2019-05-11 03:12 | disposition home or self-care (01) ==
LOC: ER 00:57
DX: R25.2 Cramp and spasm (principal); I25.10 Atherosclerotic heart disease of native coronary artery without angina pectoris; Z95.1 Presence of aortocoronary bypass graft; Z86.2 Personal history of diseases of the blood and blood-forming organs and certain disorders involving the immune mechanism

== ENCOUNTER → 2019-05-25 | Outpatient (CLI) | payer MEDICARE, MEDICAID | LOC: YCHH 11:58 | PROVIDERS: ATTEND Family Medicine | DX: D50.8 Other iron deficiency anemias (principal); D64.9 Anemia, unspecified; K92.1 Melena ==

== ENCOUNTER → 2019-06-08 | Outpatient (CLI) | payer MEDICARE, MEDICAID | LOC: GMAM 16:48 | PROVIDERS: ATTEND Family Medicine | DX: D50.0 Iron deficiency anemia secondary to blood loss (chronic) (principal); E03.9 Hypothyroidism, unspecified ==

== ENCOUNTER → 2019-06-12 | Outpatient (CLI) | payer MEDICARE, MEDICAID ==
--- NOTE | 2019-06-12 14:33 | MRI ---
EXAM DESCRIPTION: Brain w/wo Contrast: Magnetic Resonance Imaging. CLINICAL HISTORY: 84 years Female OTHER SPEECH AND LANGUAGE DEFICITS FOLLOWING CEREBROVASCULAR DIS COMPARISON: None. TECHNIQUE: Multiplanar, high-field MRI, multiple conventional sequences, without and with gadolinium IV contrast. No adverse reactions. Multiple axial diffusion sequences. FINDINGS: Small foci of hyperintense FLAIR and T2-weighted signal in the periventricular white matter abutting the occipital horn of the left lateral ventricle.. Bilateral subcortical white matter foci in the frontal lobes. These lesions are not associated with hemorrhage, cerebral edema, mass effect, diffusion restriction, or abnormal contrast enhancement. Normal signal in the bilateral basal ganglia. No hemorrhage, no cerebral edema, no mass-effect. Normal contrast enhancement and diffusion. Normal signal in the brainstem and cerebellar hemispheres. No hemorrhage, no cerebral edema, no mass-effect. Normal contrast enhancement and diffusion. Linear enhancement in the inferior medial right temporal lobe consistent with a vascular structure but not associated with mass effect, diffusion restriction or cerebral edema or hemorrhage. At the level of the right trigeminal ganglion. Concordance of the diffusion and non-diffusion sequences with no evidence of acute or subacute infarction. Cortical sulci, ventricles, and other CSF spaces, and the subdural spaces are normally configured for the patient's age.. No effacement or displacement. No midline shift. No extra-axial hemorrhage. Normal contrast enhancement. Normal flow signal void in the major vessels of the [place], and the venous sinuses. IACs are symmetric bilaterally. Normal signal in the bilateral mastoid air cells. No mass effect in the bilateral Cerebellopontine angles. Normal contrast enhancement. Pituitary gland occupies most sella. Normal contrast enhancement. Base of the cerebellar tonsils is at the level of the foramen magnum. Normal signal in the paranasal sinuses. The bony calvarium is intact. IMPRESSION: 1. White matter changes most likely related to aging and/or cerebral microvascular disease, with no hemorrhage, no mass effect, no cerebral edema, or diffusion restriction. Normal contrast enhancement. 2. Prominent vessel in the medial right temporal lobe, not associated with hemorrhage, mass effect, flow signal void, or diffusion restriction. At the level of the right trigeminal ganglion This may be related to an unseen venous malformation. If there are clinical findings associated with the right temporal lobe, consider follow-up CTA with reconstructions of the head. Electronically signed by: Ryley Arroyo MD 06/12/2019 2:32 PM CDT
== END ==
LOC: MRI 09:00
PROVIDERS: ATTEND Family Medicine
DX: I69.928 Other speech and language deficits following unspecified cerebrovascular disease (principal)

== ENCOUNTER → 2019-06-23 | Outpatient (CLI) | payer MEDICARE, MEDICAID ==
--- NOTE | 2019-06-23 15:20 | CT ---
EXAM DESCRIPTION: CTA Head CLINICAL HISTORY: OCCLUSION AND STENOSIS OF BILATERAL CAROTID ARTERIES COMPARISON: MRI head June 12, 2019 TECHNIQUE: Postcontrast CTA images of the head are obtained from base to vertex with coronal and sagittal reconstructed images. RIO MIP reconstructed images of the arterial vasculature are performed. This exam was performed according to our departmental dose-optimization program, which includes automated exposure control, adjustment of the mA and/or kV according to patient size and/or use of iterative reconstruction technique . FINDINGS: The midline structures are not displaced. Sulci are age-appropriate. No evidence of mass, mass effect, hydrocephalus, or acute cranial hemorrhage. No abnormal enhancement. No abnormal extra-axial fluid collections. The lateral, third, fourth ventricles are normal in size, shape, and anatomic positioning. Mild calcifications of the cavernous and clinoid portions of the internal carotid arteries are seen without high-grade or flow limiting stenosis. Normal branching of the major central intracranial arterial vasculature is seen with no evidence of aneurysm, vascular malformation, or flow limiting stricture or stenosis. No abnormal vessel seen in the right temporal region. Mild decreased attenuation in the periventricular white matter and white matter and centrum semiovale. 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 No aneurysm or vascular malformation is seen in the intracranial structures. Age-appropriate atrophy with mild old small vessel ischemic type changes are seen. Electronically signed by: Alejandro Poon MD 06/23/2019 3:18 PM CDT
--- NOTE | 2019-06-23 15:33 | CT ---
EXAM DESCRIPTION: CTA Neck CLINICAL HISTORY: OCCLUSION AND STENOSIS OF BILATERAL CAROTID ARTERIES COMPARISON: None. TECHNIQUE: Postcontrast CTA images of the neck are obtained with coronal and sagittal reconstructed images. Three-D reconstructed images of the arterial vascular performed. This exam was performed according to our departmental dose-optimization program, which includes automated exposure control, adjustment of the mA and/or kV according to patient size and/or use of iterative reconstruction technique . FINDINGS: Moderate calcified plaque of the thoracic aortic arch. Moderate calcified plaque of the origin of the great vessels without flow-limiting stenosis. Moderate calcified plaque of the left subclavian artery results in 50% stenosis by NASCET criteria proximal to the vertebral artery. Tortuosity of both subclavian arteries is seen. Tortuosity and scattered focal calcified plaque of the right common carotid artery. Moderate irregular calcified plaque of the right carotid bulb to proximal right internal carotid artery results in 30-40% stenosis of the right ICA by NASCET criteria. Tortuosity of the right upper cervical ICA without flow-limiting stenosis. Moderate scattered focal calcified plaque of the left common carotid artery without vessel narrowing. Mild calcified plaque of the left carotid bulb to proximal internal and external carotid artery with mild focal calcified plaque of the proximal left ICA. Less than 25% stenosis by NASCET criteria. Mild scattered calcified plaque of the codominant vertebral arteries without high-grade stenosis or occlusion. The neck soft tissues show no acute findings. No pathologic lymphadenopathy. The thyroid is not identified. Moderate centrilobular emphysematous changes to the lung apices are seen. Moderate to severe disc disease of the cervical spine from C3 through C7 resulting in at least mild spinal canal stenosis and multilevel mild foraminal encroachment. Mild facet arthropathy. IMPRESSION: [id number] calcific atherosclerotic disease of the great vessels and carotid arteries. 50% stenosis by NASCET criteria of the left subclavian artery proximal to the vertebral artery. Approximately 30-40% stenosis of the right proximal ICA by NASCET criteria. Electronically signed by: Alejandro Poon MD 06/23/2019 3:31 PM CDT
== END ==
LOC: CT 10:00
PROVIDERS: ATTEND Family Medicine
DX: I65.23 Occlusion and stenosis of bilateral carotid arteries (principal); R94.02 Abnormal brain scan

== ENCOUNTER 2019-07-09 16:41 | Emergency (ER) | payer MEDICARE, MEDICAID ==
--- NOTE | 2019-07-09 16:55 | ED.PDOC ---
History of Present Illness - General Chief Complaint: Trauma Stated Complaint: s/p fall Time Seen by Provider: 07/09/19 16:42 - History of Present Illness Initial Comments: Pt is an 84 yo female that presents with family for left arm and right knee injuries. States she waxed her floors last night and at 2300 last night she slipped on the slippery floor and landed on left arm and injured right knee. Has skin tear to left elbow and pain to dorsal left wrist. Also reports diffuse pain to right knee. Has been ambulatory today without difficulty. Has taken Tylenol this morning with some relief. Denies hitting head, LOC, neck or back pain, dizziness, vision changes or nausea. States she does not take blood thinners. Last Tetanus was 9 months ago. Allergies/Adverse Reactions: Allergies Ranolazine [From Ranexa] Allergy (Verified 01/25/19 16:18) Unknown Yellow Dye [From Ranexa] Allergy (Verified 01/25/19 16:18) Unknown Cilostazol Adverse Reaction (Verified 01/25/19 16:18) Other Makes her feel dizzy Home Medications: Ambulatory Orders Aspirin [Aspirin 81] 81 mg PO DAILY 10/08/13 Lisinopril 10 mg PO DAILY 10/08/13 Nitroglycerin 0.4 mg Tab [Nitrostat] 1 ea SL .Q5M PRN 10/08/13 Simvastatin 80 mg PO BEDTIME 10/08/13 Ipratropium/Albuterol [Duoneb] 3 ml NEB TID 03/12/16 Levothyroxine Sodium 112 mcg PO DAILY 06/30/18 Acetaminophen [Tylenol] 500 mg PO Q6H PRN 01/25/19 Furosemide [Lasix] 20 mg PO DAILY PRN 01/25/19 Iron W/ Vitamins [Geritol Complete] 1 tab PO DAILY 01/25/19 Methocarbamol 500 mg PO Q6HR PRN 04/17/19 Review of Systems - Review of Systems Constitutional: Denies: diaphoresis, fever, weakness EENTM: Denies: eye pain, blurred vision, ear pain, nose congestion, mouth pain Respiratory: Denies: cough, short of breath Cardiology: Denies: chest pain, palpitations, syncope Gastrointestinal/Abdominal: Denies: abdominal pain, nausea, vomiting Musculoskeletal: States: joint pain - left wrist, right knee. Denies: back pain Neurological: Denies: anxiety, paresthesia, weakness All other Systems: Reviewed and Negative Past Medical History (General) - Patient Medical History Hx Seizures: No Hx Stroke: Yes Hx Dementia: No Hx Asthma: No Hx of COPD: Yes Hx Cardiac Disorders: Yes Hx Congestive Heart Failure: Yes Hx Pacemaker: No Hx Hypertension: Yes Hx Thyroid Disease: Yes Hx Diabetes: No Hx Gastroesophageal Reflux: No Hx Renal Disease: No Hx MRSA: No - Vaccination History Hx Tetanus, Diphtheria Vaccination: No Hx Influenza Vaccination: No Hx Pneumococcal Vaccination: No - Social History Hx Tobacco Use: Yes Hx Alcohol Use: No Hx Substance Use: No Hx Physical Abuse: No Hx Emotional Abuse: No - Female History Patient : No Family Medical History - Family History Mother Family History: Unknown Living Status: Hx Family Hypertension: Yes Hx Family Diabetes: Yes Father Family History: No Known Hx Family Cancer: Yes - colon Physical Exam - Physical Exam General Appearance: Alert, Comfortable, No apparent distress Head Injury: other - atraumatic Eye Exam: bilateral other - PERRL ENT Exam: no evidence of ENT injury, no dental injury Neck Exam: non-tender, full range of motion, normal alignment, other - FROM w/o pain. no vertebral tenderness Cardiovascular/Respiratory: regular rate, rhythm, no M/R/G, normal peripheral pulses, normal breath sounds Gastrointestinal/Abdominal: non tender, soft, other - pelvis stable Back Exam: normal inspection, no vertebral tenderness Extremity Exam: other - TTP dorsal left wrist with no deformity. No L elbow tenderness. Right knee is diffusely TTP with no edema. 2+ peripheral pulses. 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 No sign of fracture or dislocation on imaging. Pt is NVI. RICE. NSAIDS. Place velcro wrist splint and will f/u with pcp or ortho within 1 week for repeat xray if not improving. SRP given. Departure - Departure Clinical Impression: Left wrist sprain Qualifiers: Encounter type: initial encounter Qualified Code(s): S63.502A - Unspecified sprain of left wrist, initial encounter Contusion of knee, right Qualifiers: Encounter type: initial encounter Qualified Code(s): S80.01XA - Contusion of right knee, initial encounter Time of Disposition: 18:18 Disposition: Discharge to Home or Self Care Condition: Good Departure Forms: ED Discharge - Pt. Copy, Patient Portal Self Enrollment Instructions: DI for Trauma, Common Wrist Injuries (DC) Referrals: Sal Be MD [Primary Care Provider] - 1-2 Weeks Home Medications: Ambulatory Orders Aspirin [Aspirin 81] 81 mg PO DAILY 10/08/13 Lisinopril 10 mg PO DAILY 10/08/13 Nitroglycerin 0.4 mg Tab [Nitrostat] 1 ea SL .Q5M PRN 10/08/13 Simvastatin 80 mg PO BEDTIME 10/08/13 Ipratropium/Albuterol [Duoneb] 3 ml NEB TID 03/12/16 Levothyroxine Sodium 112 mcg PO DAILY 06/30/18 Acetaminophen [Tylenol] 500 mg PO Q6H PRN 01/25/19 Furosemide [Lasix] 20 mg PO DAILY PRN 01/25/19 Iron W/ Vitamins [Geritol Complete] 1 tab PO DAILY 01/25/19 Methocarbamol 500 mg PO Q6HR PRN 04/17/19 Comments: Follow up with PCP in 1-2 days for recheck. May take Tylenol and Ibuprofen for pain.
[2019-07-09] MEDS ORDERED: CHLORHEXIDINE GLUCONATE 4 % 15 ML UD TOP ONE (17:04)
[2019-07-09] MEDS: traMADol 37.5MG/APAP 325MG 1 EA TAB PO ONE (17:36)
--- NOTE | 2019-07-09 18:07 | RAD ---
EXAM DESCRIPTION: XR Wrist, Left 3 Views CLINICAL HISTORY: 84 years Female Possible fracture TECHNIQUE: Three views of the left wrist are provided. COMPARISON: No prior exams provided for comparison. FINDINGS: Patient is osteoporotic without acute left wrist fracture or dislocation. Carpal alignment is maintained. 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 Joint spaces otherwise preserved. No aggressive osseous lesions. Scattered atherosclerotic calcifications. IMPRESSION: No acute left wrist fracture or dislocation. Electronically signed by: Bertha Yañez MD 07/09/2019 6:06 PM CDT
--- NOTE | 2019-07-09 18:08 | RAD ---
EXAM DESCRIPTION: XR Elbow, Left 3 Views CLINICAL HISTORY: 84 years Female trauma TECHNIQUE: Three views of the left elbow are provided. COMPARISON: No prior exams provided for comparison. FINDINGS: There is no acute left elbow fracture, dislocation, or joint effusion. Joint spaces appear normal. There are no aggressive osseous lesions. IMPRESSION: No acute findings in the left elbow. Electronically signed by: Bertha Yañez MD 07/09/2019 6:07 PM CDT
--- NOTE | 2019-07-09 18:10 | RAD ---
EXAM DESCRIPTION: XR Knee, Right Complete CLINICAL HISTORY: 84 years Female trauma TECHNIQUE: Three views of the right knee are provided. COMPARISON: No prior exams provided for comparison. FINDINGS: There is no acute right knee fracture or dislocation. Possible small suprapatellar joint effusion. There is moderate tricompartmental osteoarthritis, most pronounced in the medial compartment. No aggressive osseous lesion. Extensive atherosclerotic calcifications and vascular surgical clips noted. IMPRESSION: No acute findings in the right knee. Tricompartment osteoarthritis with a possible small suprapatellar joint effusion. Electronically signed by: Bertha Yañez MD 07/09/2019 6:09 PM CDT
[2019-07-09 18:41] VITALS: BP 172/65; TEMP 98.8; O2SAT 90
== END 2019-07-09 18:31 | disposition home or self-care (01) ==
LOC: ER 16:41
DX: S63.502A Unspecified sprain of left wrist, initial encounter (principal); S80.01XA Contusion of right knee, initial encounter; S51.012A Laceration without foreign body of left elbow, initial encounter; J44.9 Chronic obstructive pulmonary disease, unspecified; I51.9 Heart disease, unspecified; I50.9 Heart failure, unspecified; I11.0 Hypertensive heart disease with heart failure; E07.9 Disorder of thyroid, unspecified; W01.0XXA Fall on same level from slipping, tripping and stumbling without subsequent striking against object, initial encounter; Y92.000 Kitchen of unspecified non-institutional (private) residence as the place of occurrence of the external cause; Z79.82 Long term (current) use of aspirin; Z79.899 Other long term (current) drug therapy; Z87.891 Personal history of nicotine dependence; Z88.8 Allergy status to other drugs, medicaments and biological substances

== ENCOUNTER → 2019-09-06 | Outpatient (CLI) | payer MEDICARE, MEDICAID | END | disposition home or self-care (01) | LOC: GMAM 10:38 | PROVIDERS: ATTEND Family Medicine | DX: E53.8 Deficiency of other specified B group vitamins (principal); E03.9 Hypothyroidism, unspecified ==

== ENCOUNTER → 2019-09-19 | Outpatient (CLI) | payer MEDICARE, MEDICAID | LOC: YCHH 10:19 | PROVIDERS: ATTEND Family Medicine | DX: D64.9 Anemia, unspecified (principal); N18.9 Chronic kidney disease, unspecified; E78.5 Hyperlipidemia, unspecified; E03.9 Hypothyroidism, unspecified; D50.8 Other iron deficiency anemias ==

== ENCOUNTER 2019-11-18 09:36 | Emergency (ER) | payer MEDICARE, MEDICAID ==
[2019-11-18 09:46] VITALS: TEMP 98.4
--- NOTE | 2019-11-18 09:48 | ED.PDOC ---
History of Present Illness - General Chief Complaint: General Time Seen by Provider: 11/18/19 09:42 Source: patient - History of Present Illness Initial Comments: 84 yo female with PMH of HTN, CAD s/p CABG, Fe def anemia, COPD who presents with cc of dizziness and palpitations. Reports sx's began suddenly this morning at home - reported "feeling like my heart was trying to beat out of my chest", also reported assoc'd dizziness "like I might pass out," worse with activity, no improvement at rest, nothing taken for relief, lasted approx 30 mins and has resolved since then. Reports a similar episode yesterday as well but lasted only 20 mins and did not seek medical evaluation at that time. Also had some mild dyspnea with the episode. Denies any hx of cardiac arrhythmias to her knowledge. Denies any fevers, chills, abd pain, n/v/d, urinary sx's. Has chronic LE swelling but unchanged from usual. Allergies/Adverse Reactions: Allergies Ranolazine [From Ranexa] Allergy (Verified 01/25/19 16:18) Unknown Yellow Dye [From Ranexa] Allergy (Verified 01/25/19 16:18) Unknown Cilostazol Adverse Reaction (Verified 01/25/19 16:18) Other Makes her feel dizzy Levofloxacin [From Levaquin] Adverse Reaction (Verified 11/18/19 09:50) Other Causes hand swelling Home Medications: Ambulatory Orders Aspirin [Aspirin 81] 81 mg PO DAILY 10/08/13 Lisinopril 10 mg PO DAILY 10/08/13 Nitroglycerin 0.4 mg Tab [Nitrostat] 1 ea SL .Q5M PRN 10/08/13 Simvastatin 80 mg PO BEDTIME 10/08/13 Ipratropium/Albuterol [Duoneb] 3 ml NEB TID 03/12/16 Levothyroxine Sodium 112 mcg PO DAILY 06/30/18 Acetaminophen [Tylenol] 500 mg PO Q6H PRN 01/25/19 Furosemide [Lasix] 20 mg PO DAILY PRN 01/25/19 Albuterol Sulfate 0.63 mg NEB Q4H PRN 11/18/19 Calcium Carbonate-Vitamin D [Calcium + D3 600-200 mg-Unit] 1 tab PO DAILY 11/18/19 Ipratropium [place] 0.02 % NEB Q4H PRN 11/18/19 Review of Systems - Review of Systems Review of Systems: 11/18/19 09:48 as per HPI All other Systems: Reviewed and Negative Past Medical History (General) - Patient Medical History Hx Seizures: No Hx Stroke: Yes Hx Dementia: No Hx Asthma: No Hx of COPD: Yes Hx Cardiac Disorders: Yes Hx Congestive Heart Failure: Yes Hx Pacemaker: No Hx Hypertension: Yes Hx Thyroid Disease: Yes Hx Diabetes: No Hx Gastroesophageal Reflux: No Hx Renal Disease: No Hx MRSA: No - Vaccination History Hx Tetanus, Diphtheria Vaccination: No Hx Influenza Vaccination: No Hx Pneumococcal Vaccination: No - Social History Hx Tobacco Use: Yes Hx Alcohol Use: No Hx Substance Use: No Hx Physical Abuse: No Hx Emotional Abuse: No - Female History Patient : No Family Medical History - Family History Mother Family History: Unknown Living Status: Hx Family Hypertension: Yes Hx Family Diabetes: Yes Father Family History: No Known Hx Family Cancer: Yes - colon Physical Exam - Physical Exam General Appearance: Alert, Comfortable, No apparent distress Eye Exam: bilateral normal Ears, Nose, Throat: hearing grossly normal, normal ENT inspection, normal pharynx Neck: non-tender, full range of motion, supple, normal inspection Respiratory: lungs clear, normal breath sounds, no respiratory distress Cardiovascular/Chest: normal peripheral pulses, regular rate, rhythm, no murmur, other - 2+ BL LE edema to low ankles Peripheral Pulses: radial,right: 2+, radial,left: 2+ Gastrointestinal/Abdominal: non tender, soft, no organomegaly Back Exam: normal inspection, no CVA tenderness, no vertebral tenderness Extremity: normal range of motion, non-tender, normal inspection, no calf tenderness 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 -Labs reveal anemia with H/H 9.128 - seems near her usual baseline. Remainder of labs largely unremarkable. Trop <0.02, d dimer <500, electrolytes wnl, UA unremarkable, Mg & TSH wnl. 11/18/19 11:43 -Pt has remained stable. Uncertain of etiology of sx's. Likely multifactorial vs mild dehydration. Advised to remain well-hydrated. Document sx's and f/u closely with PCP. Dc home in good condition, return warnings discussed at length. Edvin Villanueva MD Billing #[id number] 11/18/19 09:43 IV Care:Saline Lock per Protoc QSHIFT Telemetry .ONCE Sodium Chloride 0.9% (Flush) [Saline Flush Syringe] 10 ml IV PRN PRN Chest,1 View [RAD] Stat 11/18/19 09:45 EKG STAT 11/19/19 09:00 Pulse Ox Daily Laboratory Results - last 24 hr 11/18/19 11/18/19 11/18/19 09:55 09:55 09:55 WBC 5.4 RBC 2.92 L Hgb 9.1 L Hct 28.1 L MCV 96.2 MCH 31.1 H MCHC 32.4 L RDW 14.0 Plt Count 253 MPV 9.0 Absolute Neuts (auto) 3.80 Absolute Lymphs (auto) 1.10 Absolute Monos (auto) 0.40 Absolute Eos (auto) 0.10 Absolute Basos (auto) 0.00 Neutrophils % 70.0 Lymphocytes % 20.3 Monocytes % 7.3 Eosinophils % 1.5 Basophils % 0.9 PT 10.8 INR 1.09 PTT (SP) 24.7 D-Dimer, Quantitative 448 H Sodium 138 Potassium 4.0 Chloride 105 Carbon Dioxide 25 Anion Gap 12.0 BUN 21 H Creatinine 0.70 BUN/Creatinine Ratio 30.0 H Random Glucose 113 H Serum Osmolality 279.5 Calcium 8.9 Magnesium Total Bilirubin 0.5 AST 22 ALT 12 Alkaline Phosphatase 75 Troponin I B-Natriuretic Peptide 68.9 Serum Total Protein 5.8 L Albumin 3.4 Globulin 2.4 Albumin/Globulin Ratio 1.4 TSH Urine Color Urine Appearance Urine pH Ur Specific [place] Urine Protein Urine Glucose (UA) Urine Ketones Urine Blood Urine Nitrite Urine Bilirubin Urine Urobilinogen Ur Leukocyte Esterase Urine RBC Urine WBC Ur Epithelial Cells Urine Bacteria 11/18/19 11/18/19 11/18/19 09:55 09:55 10:33 WBC RBC Hgb Hct MCV MCH MCHC RDW Plt Count MPV Absolute Neuts (auto) Absolute Lymphs (auto) Absolute Monos (auto) Absolute Eos (auto) Absolute Basos (auto) Neutrophils % Lymphocytes % Monocytes % Eosinophils % Basophils % PT INR PTT (SP) D-Dimer, Quantitative Sodium Potassium Chloride Carbon Dioxide Anion Gap BUN Creatinine BUN/Creatinine Ratio Random Glucose Serum Osmolality Calcium Magnesium 2.1 Total Bilirubin AST ALT Alkaline Phosphatase Troponin I < 0.02 B-Natriuretic Peptide Serum Total Protein Albumin Globulin Albumin/Globulin Ratio TSH 0.94 Urine Color Yellow Urine Appearance Sl cloudy Urine pH 5.5 Ur Specific [place] 1.015 Urine Protein Negative Urine Glucose (UA) Negative Urine Ketones Negative Urine Blood Negative Urine Nitrite Negative Urine Bilirubin Negative Urine Urobilinogen 0.2 Ur Leukocyte Esterase Negative Urine RBC 0 Urine WBC 0 Ur Epithelial Cells 5-10 Urine Bacteria Rare - EKG/XRAY/CT EKG: Sinus - NSR, HR 75, no ST elevations or q waves, axis and intervals normal, largely unchanged from 04/17/19 EKG XRAY: chest - no acute processes per my read Departure - Departure Clinical Impression: Palpitations, Dizziness Anemia Qualifiers: Anemia type: unspecified type Qualified Code(s): D64.9 - Anemia, unspecified Time of Disposition: 11:41 Disposition: Discharge to Home or Self Care Condition: Good Departure Forms: ED Discharge - Pt. Copy, Patient Portal Self Enrollment Instructions: Palpitations (DC) Diet: resume usual diet Referrals: Sal Be MD [Primary Care Provider] - 1-2 Weeks Home Medications: Ambulatory Orders Aspirin [Aspirin 81] 81 mg PO DAILY 10/08/13 Lisinopril 10 mg PO DAILY 10/08/13 Nitroglycerin 0.4 mg Tab [Nitrostat] 1 ea SL .Q5M PRN 10/08/13 Simvastatin 80 mg PO BEDTIME 10/08/13 Ipratropium/Albuterol [Duoneb] 3 ml NEB TID 03/12/16 Levothyroxine Sodium 112 mcg PO DAILY 06/30/18 Acetaminophen [Tylenol] 500 mg PO Q6H PRN 01/25/19 Furosemide [Lasix] 20 mg PO DAILY PRN 01/25/19 Albuterol Sulfate 0.63 mg NEB Q4H PRN 11/18/19 Calcium Carbonate-Vitamin D [Calcium + D3 600-200 mg-Unit] 1 tab PO DAILY 11/18/19 Ipratropium [place] 0.02 % NEB Q4H PRN 11/18/19 Additional Instructions: Remain well hydrated and advance diet and activity as tolerated. Return if worsening or if you develop chest pain, shortness of breath, blood in your stools or black/dark stools, abdominal pain, etc... Follow up closely with your primary care doctor in 1-2 weeks or sooner as needed.
[2019-11-18] MEDS: SODIUM CHLORIDE 0.9% (FLUSH) 10 ML SYG IV PRN (09:59)
[2019-11-18 11:07] VITALS: BP 141/42; O2SAT 92
--- NOTE | 2019-11-18 11:50 | RAD ---
EXAM DESCRIPTION: XR Chest,1 View CLINICAL HISTORY: 84 years Female, palpitations, dizziness COMPARISON: June 30, 2018. FINDINGS: Bibasilar linear stranding consistent with scarring is again noted, although probably slightly increased on the right compared to the previous study. This may be due to linear subsegmental atelectasis. There is relative elevation of the right hemidiaphragm, as previously. The lungs appear otherwise clear. Heart size appears upper normal, accentuated by technique. There are atherosclerotic changes in the thoracic aorta and poststernotomy changes. Small metallic clips overlie both lung apices. IMPRESSION: No radiographic evidence of significant acute cardiopulmonary disease. Slight increase in subsegmental atelectasis or scarring in the right base since the previous study. Otherwise essentially stable chronic changes. Electronically signed by: Karl Suggs MD 11/18/2019 11:[address] [facility]
== END 2019-11-18 11:55 | disposition home or self-care (01) ==
LOC: ER 09:36
DX: D64.9 Anemia, unspecified (principal); R42 Dizziness and giddiness; R00.2 Palpitations; R06.00 Dyspnea, unspecified; J44.9 Chronic obstructive pulmonary disease, unspecified; I50.9 Heart failure, unspecified; I11.0 Hypertensive heart disease with heart failure; E07.9 Disorder of thyroid, unspecified; Z86.73 Personal history of transient ischemic attack (TIA), and cerebral infarction without residual deficits; Z79.899 Other long term (current) drug therapy; Z79.82 Long term (current) use of aspirin; Z88.8 Allergy status to other drugs, medicaments and biological substances; Z88.1 Allergy status to other antibiotic agents; Z87.891 Personal history of nicotine dependence

== ENCOUNTER → 2019-11-21 | Outpatient (CLI) | payer MEDICARE, MEDICAID | LOC: RESP 14:26 | PROVIDERS: ATTEND Family Medicine | DX: R00.2 Palpitations (principal) ==

== ENCOUNTER → 2019-12-07 | Outpatient (CLI) | payer MEDICARE, MEDICAID | LOC: YCHH 10:40 | PROVIDERS: ATTEND Family Medicine | DX: D64.9 Anemia, unspecified (principal) ==

== ENCOUNTER 2019-12-08 09:06 | Emergency (ER) | payer MEDICARE, MEDICAID ==
--- NOTE | 2019-12-08 09:39 | ED.PDOC ---
History of Present Illness - General Chief Complaint: General Stated Complaint: dizziness, heart racing Time Seen by Provider: 12/08/19 09:26 Source: patient Exam Limitations: no limitations - History of Present Illness Initial Comments: 84 yo F with hx of CAD s/p CABG, iron deficiency anemia, COPD on oxygen as needed, CHF on lasix as needed who presents for lightheadedness associated with episode of palpitations that occured [employer], lasted 20min, resolved on its own. Reports similar sx a couple of weeks ago, was evaluated in the ED, d/c home after unremarkable workup, has not followed up with cardiology. Reports chronic edema to BLE, last lasix two days ago. Denies f/c, cough, congestion, CP, SOB, abd pain, n/v/d, urinary sx, headache, weakness, numbness, syncope, blood in stool. Allergies/Adverse Reactions: Allergies Ranolazine [From Ranexa] Allergy (Verified 01/25/19 16:18) Unknown Yellow Dye [From Ranexa] Allergy (Verified 01/25/19 16:18) Unknown Cilostazol Adverse Reaction (Verified 01/25/19 16:18) Other Makes her feel dizzy Levofloxacin [From Levaquin] Adverse Reaction (Verified 11/18/19 09:50) Other Causes hand swelling Home Medications: Ambulatory Orders Aspirin [Aspirin 81] 81 mg PO DAILY 10/08/13 Lisinopril 10 mg PO DAILY 10/08/13 Nitroglycerin 0.4 mg Tab [Nitrostat] 1 ea SL .Q5M PRN 10/08/13 Simvastatin 80 mg PO BEDTIME 10/08/13 Levothyroxine Sodium 112 mcg PO DAILY 06/30/18 Acetaminophen [Tylenol] 500 mg PO Q6H PRN 01/25/19 Furosemide [Lasix] 20 mg PO DAILY PRN 01/25/19 Albuterol Sulfate 0.63 mg NEB Q4H PRN 11/18/19 Calcium Carbonate-Vitamin D [Calcium + D3 600-200 mg-Unit] 1 tab PO DAILY 11/18/19 Ipratropium Chamisal 0.02 % NEB Q4H PRN 11/18/19 Review of Systems - Review of Systems Constitutional: Denies: chills, fever, weakness EENTM: Denies: blurred vision, double vision Respiratory: Denies: cough, orthopnea, short of breath, wheezing Cardiology: States: edema - baseline, palpitations. Denies: chest pain, syncope Gastrointestinal/Abdominal: Denies: abdominal pain, constipation, diarrhea, nausea, vomiting Genitourinary: Denies: dysuria, frequency, hematuria Musculoskeletal: Denies: back pain, neck pain Skin: Denies: lesions, rash Neurological: States: other - lightheadedness. Denies: headache, numbness, weakness Endocrine: Denies: increased thirst, increased urine Past Medical History (General) - Patient Medical History Hx Seizures: No Hx Stroke: Yes Hx Dementia: No Hx Asthma: No Hx of COPD: Yes Hx Cardiac Disorders: Yes Hx Congestive Heart Failure: Yes Hx Pacemaker: No Hx Hypertension: Yes Hx Thyroid Disease: Yes Hx Diabetes: No Hx Gastroesophageal Reflux: No Hx Renal Disease: No Hx MRSA: No Surgical History: coronary bypass surgery, Hysterectomy, other - Vaccination History Hx Tetanus, Diphtheria Vaccination: No Hx Influenza Vaccination: No Hx Pneumococcal Vaccination: No - Social History Hx Tobacco Use: Yes Hx Alcohol Use: No Hx Substance Use: No Hx Physical Abuse: No Hx Emotional Abuse: No - Female History Patient : No Family Medical History - Family History Mother Family History: Unknown Living Status: Hx Family Hypertension: Yes Hx Family Diabetes: Yes Father Family History: No Known Hx Family Cancer: Yes - colon Physical Exam - Physical Exam General Appearance: Alert, Comfortable, No apparent distress, Well Developed, Well Nourished Eye Exam: bilateral normal Ears, Nose, Throat: normal ENT inspection Neck: non-tender, full range of motion, supple, normal inspection Respiratory: chest non-tender, lungs clear, normal breath sounds, no respiratory distress, no accessory muscle use Cardiovascular/Chest: normal peripheral pulses, regular rate, rhythm, no gallop, no JVD, no murmur Peripheral Pulses: radial,right: 2+, radial,left: 2+ Gastrointestinal/Abdominal: non tender, soft, no organomegaly, no pulsatile mass, other - No guarding, rebound, distention Back Exam: normal inspection, no CVA tenderness, no vertebral tenderness Extremity: normal range of motion, non-tender, normal inspection, no calf tenderness, normal capillary refill, pedal edema - 2+ symmetric BLE Neurologic: no motor/sensory deficits, alert, normal mood/affect, oriented x 3 Skin Exam: normal color, warm/dry Progress - Progress Progress: 12/08/19 11:01 Updated pt on results, need for repeat troponin and need for follow up with cardiology. Pt agrees with plan, will repeat trop at noon. States she will see cardiology YEISON. 12/08/19 12:31 I have explained and reviewed all results with the pt. No episodes while in ED, asymptomatic, comfortable with d/c home. I explained that emergent conditions may arise and to return to the ER for new, worsening, or any persistent conditions. I've explained the importance of f/u for recheck, pt has already called for appointment on Wednesday with cardiology. All questions and concerns addressed at this time. Pt understands and agrees with plan. Pt well appearing, NAD, is stable for discharge. Jessica Chauhan MD Emergency Medicine Physician Billing Number [id number] - Results/Orders Results/Orders: 12/08/19 09:30 EKG STAT Laboratory Results - last 24 hr 12/08/19 12/08/19 12/08/19 09:50 09:50 09:50 WBC 5.5 RBC 3.32 L Hgb 9.8 L Hct 30.7 L MCV 92.5 MCH 29.5 MCHC 31.9 L RDW 14.5 Plt Count 263 MPV 8.3 Absolute Neuts (auto) 3.80 Absolute Lymphs (auto) 1.00 Absolute Monos (auto) 0.60 Absolute Eos (auto) 0.10 Absolute Basos (auto) 0.00 Neutrophils % 68.4 Lymphocytes % 19.0 L Monocytes % 10.2 H Eosinophils % 1.5 Basophils % 0.9 Sodium 138 Potassium 3.7 Chloride 103 Carbon Dioxide 28 Anion Gap 10.7 L BUN 19 H Creatinine 0.69 BUN/Creatinine Ratio 27.5 H Random Glucose 97 Serum Osmolality 277.9 Calcium 9.3 Phosphorus 3.2 Magnesium 2.3 Total Bilirubin 0.6 AST 20 ALT 13 Alkaline Phosphatase 68 Troponin I < 0.02 B-Natriuretic Peptide 35.4 Serum Total Protein 6.4 Albumin 3.5 Globulin 2.9 Albumin/Globulin Ratio 1.2 12/08/19 12:00 WBC RBC Hgb Hct MCV MCH MCHC RDW Plt Count MPV Absolute Neuts (auto) Absolute Lymphs (auto) Absolute Monos (auto) Absolute Eos (auto) Absolute Basos (auto) Neutrophils % Lymphocytes % Monocytes % Eosinophils % Basophils % Sodium Potassium Chloride Carbon Dioxide Anion Gap BUN Creatinine BUN/Creatinine Ratio Random Glucose Serum Osmolality Calcium Phosphorus Magnesium Total Bilirubin AST ALT Alkaline Phosphatase Troponin I < 0.02 B-Natriuretic Peptide Serum Total Protein Albumin Globulin Albumin/Globulin Ratio CXR: EXAM DESCRIPTION: Chest,2 Views CLINICAL HISTORY: 84 years Female, palpitatio ns, edema COMPARISON: Radiographs the chest dated 11/18/2019. TECHNIQUE: PA and lateral radiographs of the chest were obtained. FINDINGS: Changes of CABG. Trachea is midline.The cardiomediastinal silhouette is normal in size. The pulmonary vasculature is within normal limits. Bilateral lower lobe airspace opacities represent atelectasis and/or scarring. Stable blunting of the right costophrenic angle. IMPRESSION: Bilateral lower lobe airspace opacities represent atelectasis and/or scarring. Stable blunting of the right costophrenic angle. Electronically signed by: Veronica Dubose MD 12/08/2019 10:15 AM PROFESSOR [employer] Vital Signs - 24 hr 12/08/19 12/08/19 12/08/19 09:19 10:13 11:00 Temperature 98.1 F 97.8 F Pulse Rate [ 77 54 L 63 left brachial] Respiratory 22 16 16 Rate Blood Pressure 134/52 135/54 155/59 [left brachial] O2 Sat by Pulse 92 L 96 97 Oximetry 12/08/19 12/08/19 11:31 12:01 Temperature Pulse Rate [ 63 69 left brachial] Respiratory 22 23 Rate Blood Pressure 162/63 164/79 [left brachial] O2 Sat by Pulse 97 95 Oximetry - EKG/XRAY/CT EKG: nonspecific ST T wave Chg Comments: NSR, Rate 70, norm axis Departure - Departure Clinical Impression: Palpitations, Lightheadedness Disposition: Discharge to Home or Self Care Health Concerns: Condition: stable Departure Forms: ED Discharge - Pt. Copy, Patient Portal Self Enrollment Referrals: Sal Be MD [Primary Care Provider] - 1-5 Days Home Medications: Ambulatory Orders Aspirin [Aspirin 81] 81 mg PO DAILY 10/08/13 Lisinopril 10 mg PO DAILY 10/08/13 Nitroglycerin 0.4 mg Tab [Nitrostat] 1 ea SL .Q5M PRN 10/08/13 Simvastatin 80 mg PO BEDTIME 10/08/13 Levothyroxine Sodium 112 mcg PO DAILY 06/30/18 Acetaminophen [Tylenol] 500 mg PO Q6H PRN 01/25/19 Furosemide [Lasix] 20 mg PO DAILY PRN 01/25/19 Albuterol Sulfate 0.63 mg NEB Q4H PRN 11/18/19 Calcium Carbonate-Vitamin D [Calcium + D3 600-200 mg-Unit] 1 tab PO DAILY 11/18/19 Ipratropium Chamisal 0.02 % NEB Q4H PRN 11/18/19 Additional Instructions: 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
[2019-12-08 10:14] VITALS: TEMP 97.8
--- NOTE | 2019-12-08 10:17 | RAD ---
EXAM DESCRIPTION: Chest,2 Views CLINICAL HISTORY: 84 years Female, palpitations, edema COMPARISON: Radiographs the chest dated 11/18/2019. TECHNIQUE: PA and lateral radiographs of the chest were obtained. FINDINGS: Changes of CABG. Trachea is midline.The cardiomediastinal silhouette is normal in size. The pulmonary vasculature is within normal limits. Bilateral lower lobe airspace opacities represent atelectasis and/or scarring. Stable blunting of the right costophrenic angle. IMPRESSION: Bilateral lower lobe airspace opacities represent atelectasis and/or scarring. Stable blunting of the right costophrenic angle. Electronically signed by: Veronica Dubose MD 12/08/2019 10:15 AM [employer]
[2019-12-08 12:44] VITALS: BP 156/59; O2SAT 96
== END 2019-12-08 12:43 | disposition home or self-care (01) ==
LOC: ER 09:06
DX: R00.0 Tachycardia, unspecified (principal); R42 Dizziness and giddiness; I25.10 Atherosclerotic heart disease of native coronary artery without angina pectoris; J44.9 Chronic obstructive pulmonary disease, unspecified; I50.9 Heart failure, unspecified; I11.0 Hypertensive heart disease with heart failure; E07.9 Disorder of thyroid, unspecified; Z95.1 Presence of aortocoronary bypass graft; Z99.81 Dependence on supplemental oxygen; Z79.899 Other long term (current) drug therapy; Z79.82 Long term (current) use of aspirin; Z88.8 Allergy status to other drugs, medicaments and biological substances; Z88.1 Allergy status to other antibiotic agents; Z86.2 Personal history of diseases of the blood and blood-forming organs and certain disorders involving the immune mechanism; Z86.73 Personal history of transient ischemic attack (TIA), and cerebral infarction without residual deficits; Z87.891 Personal history of nicotine dependence

== ENCOUNTER → 2019-12-29 | Outpatient (CLI) | payer MEDICARE, MEDICAID | DX: D50.9 Iron deficiency anemia, unspecified (principal); R53.83 Other fatigue; E55.9 Vitamin D deficiency, unspecified ==

== ENCOUNTER → 2020-01-17 | Outpatient (CLI) | payer MEDICARE, MEDICAID | LOC: YCHH 11:15 | PROVIDERS: ATTEND Family Medicine | DX: D64.9 Anemia, unspecified (principal); D50.8 Other iron deficiency anemias; E53.8 Deficiency of other specified B group vitamins; E55.9 Vitamin D deficiency, unspecified; E03.9 Hypothyroidism, unspecified; N18.9 Chronic kidney disease, unspecified ==

== ENCOUNTER → 2020-01-23 | Outpatient (CLI) | payer MEDICARE, MEDICAID | LOC: YCHH 11:38 | PROVIDERS: ATTEND Family Medicine | DX: D64.9 Anemia, unspecified (principal) ==

== ENCOUNTER → 2020-01-30 | Outpatient (CLI) | payer MEDICARE, MEDICAID | LOC: YCHH 11:25 | PROVIDERS: ATTEND Family Medicine | DX: D64.9 Anemia, unspecified (principal) ==

== ENCOUNTER → 2020-02-06 | Outpatient (CLI) | payer MEDICARE, MEDICAID | LOC: YCHH 09:43 | PROVIDERS: ATTEND Family Medicine | DX: D64.9 Anemia, unspecified (principal) ==

== ENCOUNTER → 2020-02-20 | Outpatient (CLI) | payer MEDICARE, MEDICAID | LOC: YCHH 11:37 | PROVIDERS: ATTEND Family Medicine | DX: D64.9 Anemia, unspecified (principal) ==

== ENCOUNTER → 2020-03-05 | Outpatient (CLI) | payer MEDICARE, MEDICAID | LOC: YCHH 10:38 | PROVIDERS: ATTEND Family Medicine | DX: D64.9 Anemia, unspecified (principal); D50.8 Other iron deficiency anemias ==

== ENCOUNTER → 2020-03-26 | Outpatient (CLI) | payer MEDICARE, MEDICAID | LOC: YCHH 10:41 | PROVIDERS: ATTEND Family Medicine | DX: D64.9 Anemia, unspecified (principal) ==

== ENCOUNTER → 2020-04-11 | Outpatient (CLI) | payer MEDICARE, MEDICAID | LOC: YCHH 12:28 | PROVIDERS: ATTEND Family Medicine | DX: D64.9 Anemia, unspecified (principal) ==

== ENCOUNTER → 2020-04-30 | Outpatient (CLI) | payer MEDICARE, MEDICAID | LOC: YCHH 12:34 | PROVIDERS: ATTEND Family Medicine | DX: D64.9 Anemia, unspecified (principal) ==

== ENCOUNTER → 2020-05-21 | Outpatient (CLI) | payer MEDICARE, MEDICAID | LOC: YCHH 13:09 | PROVIDERS: ATTEND Family Medicine | DX: D64.9 Anemia, unspecified (principal) ==

== ENCOUNTER → 2020-06-18 | Outpatient (CLI) | payer MEDICARE, MEDICAID | LOC: YCHH 10:04 | PROVIDERS: ATTEND Family Medicine | DX: N18.9 Chronic kidney disease, unspecified (principal); D64.9 Anemia, unspecified; E03.9 Hypothyroidism, unspecified ==

== ENCOUNTER → 2020-09-10 | Outpatient (CLI) | payer MEDICARE, MEDICAID | LOC: YCHH 10:40 | PROVIDERS: ATTEND Family Medicine | DX: N18.9 Chronic kidney disease, unspecified (principal); D50.0 Iron deficiency anemia secondary to blood loss (chronic); D64.9 Anemia, unspecified; E78.5 Hyperlipidemia, unspecified; E03.9 Hypothyroidism, unspecified ==

== ENCOUNTER → 2020-11-14 | Outpatient (CLI) | payer MEDICARE, MEDICAID | LOC: YCHH 11:26 | PROVIDERS: ATTEND Family Medicine | DX: D50.9 Iron deficiency anemia, unspecified (principal); E53.8 Deficiency of other specified B group vitamins; D50.0 Iron deficiency anemia secondary to blood loss (chronic); E61.1 Iron deficiency; R79.0 Abnormal level of blood mineral ==